=== PATIENT | female | born 1940 | race Caucasian/White ===

== ENCOUNTER → 2017-09-14 | Outpatient (CLI) | payer MEDICARE ==
--- NOTE | 2017-09-16 09:02 | MM ---
Reason for exam: screening (asymptomatic). Last mammogram was performed 1 year and 4 months ago. History: Patient is postmenopausal. Physical Findings: A clinical breast exam by your physician is recommended on an annual basis and results should be correlated with mammographic findings. MG Screening Mammo w CAD Bilateral CC and MLO view(s) were taken. Prior study comparison: May 22, 2016, bilateral MG screening mammo w CAD. November 27, 2015, right breast MG diagnostic mammo RT w CAD. The breast tissue is almost entirely fat. No significant changes when compared with prior studies. ASSESSMENT: Benign, BI-RAD 2 RECOMMENDATION: Routine screening mammogram of both breasts in 1 year.
== END | disposition home or self-care (01) ==
LOC: RADMAMWWP 11:11
PROVIDERS: ATTEND Internal Medicine
DX: Z12.31 Encounter for screening mammogram for malignant neoplasm of breast (principal)
CPT/HCPCS: 77067

== ENCOUNTER → 2018-05-05 | Outpatient (CLI) | payer MEDICARE ==
--- NOTE | 2018-05-05 16:40 | XR ---
EXAMINATION TYPE: XR Hip Complete LT DATE OF EXAM: 05/05/2018 COMPARISON: NONE HISTORY: 78-year-old female with left hip pain TECHNIQUE: 2 views FINDINGS: [id number] degenerative spurring at the left hip with overall preserved joint space. Osteopenia and further limitation due to overlying soft tissue. No acute fracture, subluxation, or dislocation seen. IMPRESSION: Mild left hip osteoarthrosis.
== END | disposition home or self-care (01) ==
LOC: RADXRMAIN 10:40
PROVIDERS: ATTEND Internal Medicine
DX: M16.12 Unilateral primary osteoarthritis, left hip (principal)
CPT/HCPCS: 73502

== ENCOUNTER → 2018-12-29 | Outpatient (CLI) | payer MEDICARE ==
--- NOTE | 2018-12-30 11:30 | MM ---
Reason for exam: screening (asymptomatic). Last mammogram was performed 1 year and 3 months ago. History: Patient is postmenopausal. Physical Findings: A clinical breast exam by your physician is recommended on an annual basis and results should be correlated with mammographic findings. MG 3D Screening Mammo W/Cad Bilateral CC and MLO view(s) were taken. Prior study comparison: September 14, 2017, bilateral MG screening mammo w CAD. May 22, 2016, bilateral MG screening mammo w CAD. There are scattered fibroglandular densities. There is no discrete abnormality. ASSESSMENT: Negative, BI-RAD 1 RECOMMENDATION: Routine screening mammogram of both breasts in 1 year.
== END | disposition home or self-care (01) ==
LOC: RADMAMWWP 09:54
PROVIDERS: ATTEND Internal Medicine
DX: Z12.31 Encounter for screening mammogram for malignant neoplasm of breast (principal)
CPT/HCPCS: 77063; 77067

== ENCOUNTER → 2018-12-29 | Outpatient (CLI) | payer MEDICARE ==
[2018-12-29 16:34] LABS: Albumin 4.5 g/dL (3.80-4.90); Albumin/Globulin Ratio 2.65 (1.60-3.17); Bilirubin, Conjugated 0.3 mg/dL (0.20-0.40); Bilirubin,Unconjugated 0.5 mg/dL; Globulin 1.7 g/dL (1.6-3.3); Total Bilirubin 0.8 mg/dL (0.2-1.2); Total Protein 6.2 g/dL (6.2-8.2)
== END | disposition home or self-care (01) ==
LOC: LABWHC1 10:35
PROVIDERS: ATTEND Physician Assistant
DX: K75.81 Nonalcoholic steatohepatitis (NASH) (principal)
CPT/HCPCS: 36415; 80076

== ENCOUNTER → 2020-11-19 | Outpatient (CLI) | payer MEDICARE ==
[2020-11-19 19:03] LABS: Chol/HDL Ratio 2.85; LDL Cholesterol,Calculated 29.8 mg/dL (0.0-131.0); VLDL Calculation 31.2 mg/dL (5.00-40.00)
== END | disposition home or self-care (01) ==
LOC: LABWHC1 07:31
PROVIDERS: ATTEND Internal Medicine
DX: E78.5 Hyperlipidemia, unspecified (principal)
CPT/HCPCS: 36415; 80061

== ENCOUNTER → 2022-01-29 | Outpatient (CLI) | payer MEDICARE ==
[2022-01-29 14:47] LABS: Basophils # (A) 0.08 X 10*3/uL (0.00-0.10); Basophils % (A) 1.1 %; Eosinophils # (A) 0.09 X 10*3/uL (0.04-0.35); Eosinophils % (A) 1.2 %; HCT 44.1 % (37.2-46.3); HGB 14.1 g/dL (12.0-15.0); Immature Grans, Automated 0.4 %; Lymphocytes # (A) 2.56 X 10*3/uL (0.90-5.00); Lymphocytes % (A) 34.5 %; MCH 28.3 pg (27.0-32.0); MCV 88.6 fL (80.0-97.0); Mean Platelet Volume 9.7 fL (9.5-12.2); Monocytes # (A) 0.71 X 10*3/uL (0.20-1.00); Monocytes % (A) 9.6 %; NRBC Per 100 WBC 0 /100 WBCS (0.0-0.0); Neutrophils # (A) 3.96 X 10*3/uL (1.80-7.70); Neutrophils % (A) 53.2 %; Platelet Count 318 X 10*3/uL (140-440); RBC 4.98 X 10*6/uL (4.10-5.20); RDW 13.8 % (11.5-14.5); WBC 7.43 X 10*3/uL (4.50-10.00)
[2022-01-29 15:04] LABS: African American GFR (CKD) 93.5 (60.0-200.0); Albumin 4.2 g/dL (3.8-4.9); Albumin/Globulin Ratio 1.56 (1.60-3.17); Anion Gap 11.9 mmol/L (10.00-18.00); BUN/Creat Ratio 23.14 Ratio (12.00-20.00); Blood Urea Nitrogen 16.2 mg/dL (9.0-27.0); Calcium 9.6 mg/dL (8.7-10.3); Carbon Dioxide 25.1 mmol/L (20.0-27.5); Globulin 2.7 g/dL (1.6-3.3); Non-African American GFR(CKD) 80.7 (60.0-200.0); Total Bilirubin 0.8 mg/dL (0.30-1.20); Total Protein 6.9 g/dL (6.2-8.2)
== END | disposition home or self-care (01) ==
LOC: LABWHC1 09:34
PROVIDERS: ATTEND Internal Medicine Gastroenterology
DX: K76.0 Fatty (change of) liver, not elsewhere classified (principal)
CPT/HCPCS: 36415; 80053; 85025

== ENCOUNTER 2022-03-22 09:06 | Inpatient (IN) | payer MEDICARE ==
[2022-03-22] MEDS ORDERED: LIDOCAINE 1% INJ 10MG/ML (5 ML VIAL-PF) SQ ONE (09:22)
--- NOTE | 2022-03-22 09:46 | ED ---
Fall HPI - General Chief Complaint: Fall Stated Complaint: Fall Time Seen by Provider: 03/22/22 09:20 Source: EMS Mode of arrival: EMS - History of Present Illness Initial Comments: Patient is a pleasant 82-year-old female presents to the emergency room via EMS after getting out of bed earlier this morning to go to the restroom and tripping and falling. She has a known history of unsteady gait at times. Any loss of consciousness from the fall. She does take a baby aspirin daily. She denies any headache or dizziness, nausea or vomiting at this time. She does complain of neck pain posteriorly. She denies any pain in the extremities or wounds to her extremities. She does have a laceration which is through and through to the left lower lip. She has a bruise and swelling to her right hand with a Band-Aid intact which she reports was present prior to her fall this morning; she states that she applies the Band-Aid to prevent herself from itching the bruised region. She denies any chest pain, shortness of breath, fevers or chills. She has a past medical history significant for hypertension, hyperlipidemia, overactive bladder and GERD. - Related Data Home Medications Medication Instructions Recorded Confirmed Aspirin 81 mg PO QAM 11/15/13 05/17/17 Omeprazole [PriLOSEC] 20 mg PO W/SUPPER 11/15/13 05/17/17 Pravastatin Sodium [Pravachol] 80 mg PO HS 11/15/13 05/17/17 amLODIPine [Norvasc] 10 mg PO QAM 11/15/13 05/17/17 Baclofen 10 mg PO HS 05/17/17 05/17/17 Famotidine 40 mg PO W/SUPPER 05/17/17 05/17/17 Fenofibrate Nanocrystallized 145 mg PO W/SUPPER 05/17/17 05/17/17 [Fenofibrate] Oxybutynin Xl [Ditropan Xl] 5 mg PO QAM 05/17/17 05/17/17 polyethylene glycoL 3350 [Miralax] 17 gm PO QAM 05/17/17 05/17/17 raNITIdine HCL [Zantac] 300 mg PO BID 05/17/17 05/17/17 Previous Rx's Medication Instructions Recorded Triamcinolone 0.1% Cream [Kenalog 1 applicatio TOPICAL BID #1 tube 10/03/17 0.1% Cream] Allergies Allergy/AdvReac Type Severity Reaction Status Date / Time adhesive tape Allergy Unknown Verified 03/22/22 09:18 atorvastatin calcium Allergy Swelling Verified 03/22/22 09:18 [From Lipitor] Review of Systems ROS Statement: Those systems with pertinent positive or pertinent negative responses have been documented in the HPI. ROS Other: All systems not noted in ROS Statement are negative. Past Medical History Past Medical History: GERD/Reflux, Hyperlipidemia, Hypertension History of Any Multi-Drug Resistant Organisms: None Reported Past Surgical History: Section, Orthopedic Surgery Additional Past Surgical History / Comment(s): catarac surgery Past Psychological History: No Psychological Hx Reported Smoking Status: Former smoker Past Alcohol Use History: Rare Past Drug Use History: None Reported General Exam General appearance: alert, in no apparent distress Head exam: Present: normocephalic Expanded Head exam: Absent: hematoma, raccoon eyes, general tenderness Eye exam: Present: normal appearance, PERRL. Absent: scleral icterus, conjunctival injection Expanded Ear exam: Present: normal external inspection Mouth exam: Present: laceration (Left lower lip through and through approximately 1.3 cm) Teeth exam: Present: other (Dentures) Neck exam: Present: other (C-collar intact) Respiratory exam: Present: normal lung sounds bilaterally. Absent: respiratory distress, wheezes, rales, rhonchi, stridor Cardiovascular Exam: Present: regular rate, normal rhythm, normal heart sounds. Absent: systolic murmur, diastolic murmur, rubs, gallop, clicks GI/Abdominal exam: Present: soft, normal bowel sounds. Absent: distended, tenderness, guarding, rebound, rigid Rectal exam: Present: deferred Extremities exam: Present: normal inspection. Absent: tenderness, pedal edema, joint swelling Back exam: Present: normal inspection Neurological exam: Present: alert, oriented X3, CN II-XII intact Psychiatric exam: Present: normal affect, normal mood Skin exam: Present: other (Laceration to lip as above) Course Vital Signs 03/22/22 09:08 Temperature 97.8 F Pulse Rate 107 H Respiratory 18 Rate Blood Pressure 191/100 O2 Sat by Pulse 98 Oximetry Procedures - Laceration Laceration #1 Consent Obtained: verbal consent Indication: laceration Site: lip Description: linear Depth: [id number] Anesthesia Technique: local infiltration Pre-repair: irrigated extensively Type of Sutures: vicryl Size of Sutures: 5-0 (7), 6-0 (3 ) Technique: simple, interrupted Patient Tolerated Procedure: well, no complications Medical Decision Making - Medical Decision Making 82-year-old female presenting to the emergency room via EMS after a trip and fall at home. On aspirin with no loss of consciousness. Complaining of neck pain in c-collar. Will check CT of the brain and cervical spine. No extremity pain or identified injury. Laceration to lip will need suture closure will plan for closure 1 c-collar cleared. EKG obtained after arrival by EMS. No indication for other diagnostic imaging or laboratory studies at this time. Computed tomography scan of the cervical spine reveals an acute pathological fracture at the C4 level. Dr. Chisholm contacted regarding fracture. He evaluated patient at bedside. Patient continues to have no neurological deficits. C-collar has been maintained. Patient is to have surgery with Dr. Chisholm in the morning. Will attempt to arrange MRI of cervical spine without contrast today and transfer into an [facility] cervical collar. Patient to be admitted to Dr. Chisholm service with trauma surgeon and medical management consult. Will place orders. Laceration to left lower lip reapproximated and closed without complications. MRI of cervical spine to be completed at 1:30 today. Cervical spine precautions utilize while transferring patient out of EMS cervical collar to collar. Neurovascularly intact postprocedure. Dr. Wilson with trauma services notified regarding patient's status and was for Dr. Chisholm to be consultation with patient's care. Due to lip laceration and plan for surgery in the morning patient's dentures sent home with patient's daughter at bedside. Will order morphine for pain to utilize as needed for neck pain. Case discussed with Dr. Darby. - EKG Data EKG Comments: Sinus rhythm, left anterior fascicular block, left ventricular hypertrophy ventricular rate 99 bpm, OR interval 176 ms, QRS duration 104 ms, QT/QTC 345/401 ms, PRT axis V, -47, 63. - Radiology Data Radiology results: report reviewed, image reviewed CT brain and cervical spine with out contrast impression: No acute bleed or mass effect intracranially. Acute pathological fracture involving C4 with adjacent soft tissue swelling and disruption of the anterior flowing osteophytes. The findings raise question of metastatic disease or primary tumor of C4. 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 Disposition Clinical Impression: Fall, Closed C4 fracture Disposition: ADMITTED IP TO THIS HOSP Condition: Serious Is patient prescribed a controlled substance at d/c from ED?: No Referrals: Leila Pompa MD [Primary Care Provider] - 1-2 days Time of Disposition: 12:21
[2022-03-22] MEDS ORDERED: LIDOCAINE 1% INJ 10MG/ML (20 ML MDV) SQ ONE (10:00)
--- NOTE | 2022-03-22 10:21 | CT ---
EXAMINATION TYPE: CT brain dirk olguin DATE OF EXAM: 03/22/2022 COMPARISON: None HISTORY: Fall CT DLP: 1431 mGycm Automated exposure control for dose reduction was used. TECHNIQUE: CT scan of the head and cervical spine are performed without contrast. FINDINGS: Head CT: The ventricles, basal cisterns and sulci over the convexities are markedly enlarged consistent with m arked atrophy. There is mild basal ganglial calcification. There is a remote lacunar infarct in the left basal ganglia. There is no acute intra or extra-axial hemorrhage. The posterior fossa is grossly normal. The intraorbital contents appear normal and symmetric. Visualized paranasal sinuses and mastoid air c ells are well aerated. The calvarium is intact. CT cervical spine. The craniovertebral junction relationships are normal. There is a lytic destructive process involving the anterior and inferior aspect of C4. There are diffuse flowing anterior osteophytes of the cervic al and thoracic spine consistent with ankylosing spondylitis and at the C4 level, the flowing osteoph yte is fractured. The findings are consistent with an acute pathologic fracture of C4. There is mild adjacent anterior soft tissue swelling. There is no retropulsion. There is no malalignment in the cer vical spine. IMPRESSION: 1. No acute bleed or mass effect intracranially. 2. Acute pathologic fracture involving C4 with adjacent soft tissue swelling and disruption of the an terior flowing osteophytes. The findings raise the question of metastatic disease or primary tumor of C4 3. Ankylosing spondylitis of the cervical and thoracic spine.
--- NOTE | 2022-03-22 11:03 | P.HPOR ---
History of Present Illness H&P Date: 03/22/22 Chief Complaint: FFS, neck pain, Facial trauma, head injury 82 yo female presented to ED via EMS with family for FFS at home. She c/o neck pain, head pain and facial laceration. She was at home and tripped and hit her face on surrounding object. She denies any pain in her other extremities at this time. Denies any numbness/tingling. Denies any weakness. States pain in neck and mid back. Denies any numbness/tingling in genital region. Family is at bediside. She is fairly independent at home. Will use a walker or cane for stability. She has had recent more frequent falls in the past few months. They state BHT but no LOC with fall. Review of Systems 16 pt ROS as stated in HPI. All others reviewed negative. All systems: negative Constitutional: Reports as per HPI Past Medical History Past Medical History: GERD/Reflux, Hyperlipidemia, Hypertension History of Any Multi-Drug Resistant Organisms: None Reported Past Surgical History: Section, Orthopedic Surgery Additional Past Surgical History / Comment(s): catarac surgery Past Psychological History: No Psychological Hx Reported Smoking Status: Former smoker Past Alcohol Use History: Rare Past Drug Use History: None Reported Medications and Allergies Home Medications Medication Instructions Recorded Confirmed Type Aspirin 81 mg PO QAM 11/15/13 05/17/17 History Omeprazole [PriLOSEC] 20 mg PO W/SUPPER 11/15/13 05/17/17 History Pravastatin Sodium [Pravachol] 80 mg PO HS 11/15/13 05/17/17 History amLODIPine [Norvasc] 10 mg PO QAM 11/15/13 05/17/17 History Baclofen 10 mg PO HS 05/17/17 05/17/17 History Famotidine 40 mg PO W/SUPPER 05/17/17 05/17/17 History Fenofibrate Nanocrystallized 145 mg PO W/SUPPER 05/17/17 05/17/17 History [Fenofibrate] Oxybutynin Xl [Ditropan Xl] 5 mg PO QAM 05/17/17 05/17/17 History polyethylene glycoL 3350 [Miralax] 17 gm PO QAM 05/17/17 05/17/17 History raNITIdine HCL [Zantac] 300 mg PO BID 05/17/17 05/17/17 History Triamcinolone 0.1% Cream [Kenalog 1 applicatio TOPICAL BID #1 tube 10/03/17 Rx 0.1% Cream] Allergies Allergy/AdvReac Type Severity Reaction Status Date / Time adhesive tape Allergy Unknown Verified 03/22/22 09:18 atorvastatin calcium Allergy Swelling Verified 03/22/22 09:18 [From Lipitor] Physical Examination Osteopathic Statement: *. No significant issues noted on an osteopathic structural exam other than those noted in the History and Physical/Consult. AOX3 NAD Facial laceration with left lower lip laceration complete Facial trauma, blunt with contusions No large neck masses TTP about the midline C spine, paraspinal C spine and upper T spine. No TTP of L spine at this time 4+/5 all UE and LE major muscle groups no focal deficits at this time. 2/4 DTR all, Neg hoffmans, no clonus, neg babinski 2/4 distal pulses all 4 EXT Compartments soft compressive Right hand shows contusion about the first MCP joint and Scaphoid region that family states is old with ecchymosis. No pain with log roll b/l hips No pain with PROM knees, hips, ankles, wrists, elbows or shoulders b/l Skin otherwise intact CN II-XII grossly intact Results CT of C spine shows C4 AO type B3 Extension type fracture that translates through C4 vertebral body. This is through an ankylosed spine with OALL and some OPLL noted. NO other fractures at this time noted. C0-1 and C1-2 are stable. Large anterior hematoma noted. No posterior seen. MRI to see neural elements. Assessment and Plan Assessment: 82 yo female C4 AO type B3 extension fracture, NV intact, unstable through ankylosed spine s/p ffs BHT/BFT Complex medical patient Plan: -Stat MRI w/o C spine -C collar, hard with C spine percautions at all times -Bed rest -Trauma, medicine consults for clearance for OR -NO anticoag meds, Mechanical DVT ppx TEDs SCDs -Pain control -Spoke with family about options. Stabilization via posterior cervical decompression and fusion is recommended at this point given the patients status and the impending instability of the fracture. We will plan on OR tomorrow 03/23/22 for posterior C2-T2 stabilization.
[2022-03-22] MEDS ORDERED: NALOXONE 0.4 MG/ML 1 ML VIAL IV PRN (11:42)
[2022-03-22] MEDS: MORPHINE SULFATE 4 MG/ML SYRINGE IV PRN ×3 (12:36→21:05)
--- NOTE | 2022-03-22 14:01 | P.CONS ---
History of Present Illness - Reason for Consult Consult date: 03/22/22 Medical management - Chief Complaint Fall - History of Present Illness 82 years old lady with past medical history of hypertension, hyperlipidemia and GERD she presents to the emergency room via EMS after fall this morning. The patient was admitted to orthopedic surgery and started to have C4 cervical fracture, internal medicine was consulted for medical management. The patient stated that she got out of her bed this morning and she was walking and then tripped and fall on her face she had lacerations on her face and lower lip and some bruising and swelling to her right hand. She denies having any chest pain or difficulty breathing, no fever or sick contacts. No nausea vomiting diarrhea or constipation. Admission her blood pressure was 191/100 trended down to 145/95, she is tachycardic heart rate around 100. Review of Systems A 14 point review systems was assessed patient was only positive for those described in HPI Past Medical History Past Medical History: GERD/Reflux, Hyperlipidemia, Hypertension History of Any Multi-Drug Resistant Organisms: None Reported Past Surgical History: Section, Orthopedic Surgery Additional Past Surgical History / Comment(s): catarac surgery Past Psychological History: No Psychological Hx Reported Smoking Status: Former smoker Past Alcohol Use History: Rare Past Drug Use History: None Reported Medications and Allergies Home Medications Medication Instructions Recorded Confirmed Type Aspirin 81 mg PO DAILY 11/15/13 03/22/22 History Omeprazole [PriLOSEC] 20 mg PO BID 11/15/13 03/22/22 History Pravastatin Sodium [Pravachol] 80 mg PO HS 11/15/13 03/22/22 History amLODIPine [Norvasc] 10 mg PO DAILY 11/15/13 03/22/22 History Famotidine 40 mg PO DAILY 05/17/17 03/22/22 History Latanoprost [Latanoprost 0.005%] 1 drop BOTH EYES HS 03/22/22 03/22/22 History Allergies Allergy/AdvReac Type Severity Reaction Status Date / Time adhesive tape Allergy Unknown Verified 03/22/22 13:01 atorvastatin calcium Allergy Swelling Verified 03/22/22 13:01 [From Lipitor] Physical Exam Vitals: Vital Signs Temp Pulse Resp BP Pulse Ox 03/22/22 12:30 102 H 16 145/95 97 03/22/22 09:08 97.8 F 107 H 18 191/100 98 Intake and Output 03/21/22 03/22/22 03/22/22 22:59 06:59 14:59 Other: Weight 78.471 kg General: [non toxic], [moderate distress], [appears at stated age] Derm: [warm], [dry] Head: [Facial laceration and lower lip laceration], [normocephalic], Eyes: [EOMI], [no lid lag], [anicteric sclera] Mouth: [no lip lesion], [mucus membranes moist] Cardiovascular: [S1S2 reg], [no murmur], [positive posterior tibial pulse bilateral], Lungs: [CTA bilateral], [no rhonchi, no rales] , [no accessory muscle use] Abdominal: [soft], [ nontender to palpation], [no guarding], [no appreciable organomegaly] Ext: [no gross muscle atrophy], [no edema], [no contractures] right hand contusion Neuro: [ CN II-XI grossly intact], [no focal neuro deficits] Psych: [Alert], [drowsy], [appropriate affect] Assessment and Plan Assessment: Hypertension Resume home medications amlodipine 10 mg Hyperlipidemia Resume pravastatin 20 and fenofibrate 145 mg daily GERD Resume famotidine 40 mg by mouth daily Tachycardia Likely secondary to the pain Continue pain medication C4 cervical fracture Management per orthopedic surgery team Thanks for consulting him to medicine, feel free to reach sound physician for any questions. We will follow the patient peripherally
[2022-03-22] MEDS: FAMOTIDINE 20 MG TAB PO SCH (14:15)
[2022-03-22] MEDS: amLODIPine 10 MG TAB PO SCH (14:16)
--- NOTE | 2022-03-22 14:16 | MR ---
EXAMINATION TYPE: MR cervical spine wo con DATE OF EXAM: 03/22/2022 COMPARISON: None HISTORY: Neck pain and trauma TECHNIQUE: Multiplanar, multisequence images of the cervical spine were acquired without contrast. FINDINGS: The craniovertebral junction relationships are normal. The STIR sagittal images reveal marked abnormal signal intensity in the anterior inferior aspect of t he C4 vertebral segment with significant fluid in the prevertebral soft tissues. The findings are con sistent with an acute C4 fracture and prevertebral soft tissue swelling/edema. There is no retropulsi on and the cervical cord is normal in size and signal intensity. The remaining vertebral segments are normal in height and alignment. There are diffuse flowing osteop hytes along the anterior aspect of the cervical and thoracic spine consistent with ankylosing spondyl itis. Fracture at C4 also involves the anterior bridging osteophyte. There is marked cervical lordoti c curvature. IMPRESSION: 1. Acute C4 fracture and prevertebral soft tissue edema without retropulsion or abnormality of the ce rvical cord. 2. Ankylosing spondylitis.
--- NOTE | 2022-03-22 14:24 | P.GSCN ---
History of Present Illness Consult date: 03/22/22 Reason for Consult: Fall, C4 fracture History of present illness: Patient is an 82-year-old lady brought to [facility] emergency department 03/22/2022 after suffering a fall at home overnight. She tells me she's been having issues with urinary frequency and incontinence. She got out of bed in the middle the night to go the restroom and fell. She can't really tell me exactly how this happened. She denies antecedent dizziness or l ightheadedness, no reported chest pain or shortness of breath, no reported head trauma. She's not maintained on any manner of oral anticoagulants of significance aside from a daily low-dose aspirin. She suffered an upper fall a few weeks ago without significant injuries under similar circumstances. She tells me that she got up to maneuver some questions on the couch and ended up falling again without reports of dizziness or lightheadedness. She complains only of pain at the neck. No known personal history of heart attack, stroke, DVT or pulmonary embolus. A computed tomography scan of the head was obtained showing evidence of cerebral atrophy, suggestion of remote left basal ganglion lacunar infarct, no evidence of intracranial bleed or skull fracture. Computed tomography scan of the neck shows an unstable appearing fracture through the body of C4 with associated all lytic bone destruction and question of either metastatic or primary malignancy. No evidence of pneumothorax at the lung apices as visualized. She is been admitted to the neurosurgical service with request for medical and trauma surgery consultation. She's been afebrile since admission, has a low-grade tachycardia at 102. Normotensive, saturating well on room air. As aspirin collar in place. EKG on presentation showed sinus rhythm with a rate of 99, left anterior fascicular block, left ventricular hypertrophy. Laboratory studies not yet available. Review of Systems All systems: negative - Constitutional Reports as per HPI Past Medical History Past Medical History: GERD/Reflux, Hyperlipidemia, Hypertension History of Any Multi-Drug Resistant Organisms: None Reported Past Surgical History: Section, Cholecystectomy, Orthopedic Surgery Additional Past Surgical History / Comment(s): catarac surgery Past Psychological History: No Psychological Hx Reported Smoking Status: Former smoker Past Alcohol Use History: Rare Past Drug Use History: None Reported Medications and Allergies Home Medications Medication Instructions Recorded Confirmed Type Aspirin 81 mg PO DAILY 11/15/13 03/22/22 History Omeprazole [PriLOSEC] 20 mg PO BID 11/15/13 03/22/22 History Pravastatin Sodium [Pravachol] 80 mg PO HS 11/15/13 03/22/22 History amLODIPine [Norvasc] 10 mg PO DAILY 11/15/13 03/22/22 History Famotidine 40 mg PO DAILY 05/17/17 03/22/22 History Latanoprost [Latanoprost 0.005%] 1 drop BOTH EYES HS 03/22/22 03/22/22 History Allergies Allergy/AdvReac Type Severity Reaction Status Date / Time adhesive tape Allergy Unknown Verified 03/22/22 13:01 atorvastatin calcium Allergy Swelling Verified 03/22/22 13:01 [From Lipitor] Surgical - Exam Osteopathic Statement: *. No significant issues noted on an osteopathic structural exam other than those noted in the History and Physical/Consult. Vital Signs Temp Pulse Resp BP Pulse Ox 97.8 F 107 H 18 191/100 98 03/22/22 09:08 03/22/22 09:08 03/22/22 09:08 03/22/22 09:08 03/22/22 09:08 - General well developed, well nourished, no distress - Eyes PERRL, normal ocular movement - ENT No scalp lacerations or contusions appreciated. No oral or dental trauma. A small 1 cm so upper lip laceration is been repaired by the emergency department physician. Cervical collar is in place. normal pinna, normal nares, normal mucosa - Neck trachea midline - Respiratory normal expansion, normal respiratory effort, clear to auscultation - Cardiovascular Heart sounds distant without appreciable murmur Rhythm: regular - Abdomen Abdomen soft, nontender to palpation, no guarding rebound or distention. Pelvis is stable. No abdominal ecchymoses or contusions. Abdomen: soft, non tender - Neurologic GCS 15, moves all extremities, no focal motor or sensory deficits appreciated. normal coordination, normal sensation - Musculoskeletal Pelvis is stable, no limb length discrepancy. There is asymmetry with respect to the right knee compared to the left and a restriction and slightly painful range of passive motion at the right knee. - Psychiatric oriented to time, oriented to person, oriented to place, speech is normal Results - Imaging EKG: report reviewed Assessment and Plan Assessment: 82-year-old lady with recurrent falls, described as mechanical. No reported antecedent dizziness or lightheadedness. Issues with urinary frequency and incontinence, question of underlying UTI. Mild sinus tachycardia, may relate to pain. EKG suggests a degree of ventricular hypertrophy and left anterior fascicular block. No previously demonstrated history of heart attack, stroke, DVT or pulmonary embolus. Has a hemodynamically stable appearance. Computed tomography scan of the head shows no evidence of fracture or intracranial bleed. Computed tomography scan of the neck shows a lytic process and associated unstable fracture at C4 through the body. Question of underlying metastatic or primary malignancy. No evidence of pneumothorax on the apices of the lungs as visualized on CT neck. Some tenderness and restriction of range of motion of the right knee without overlying ecchymoses abrasions or laceration, likely a chronic finding, may relate to dramatic knee effusion. Rule out underlying fracture. Plan: Arrangements have been made for stabilization of his C4 fracture tomorrow morning. In the meantime will order a complete set of labs to look for metabolic issues that could've contributed to her falling to get a good preoperative baseline hemoglobin. Will order a urinalysis to investigate for underlying UTI. Will order right knee x-rays to investigate for fusion versus fracture. Will order computed tomography scan of chest, abdomen and pelvis with oral and IV contrast to screen for potential rib fracture but more importantly investigate for underlying malignancy that could be contributing to a metastatic pathologic cervical spine fracture. She's been having recurrent issues with falls, can really provide a complete story of with regard to the circumstances. Telemetry for now with echocardiogram and carotid duplex pending to look for potential cardiogenic or neurovascular etiology for recurrent falls. Will follow. Time with Patient: Greater than 30
--- NOTE | 2022-03-22 15:05 | XR ---
EXAMINATION TYPE: XR knee complete RT DATE OF EXAM: 03/22/2022 COMPARISON: NONE HISTORY: Knee pain TECHNIQUE: 3 views FINDINGS: There is severe narrowing of the knee joint spaces. There is spurring of the femoral and ti bial condyles. There is genu valgus deformity. No acute fractures seen. There is some mild depression of the lateral tibial plateau that appears chronic. IMPRESSION: Advanced osteoarthritis. No acute fractures seen.
[2022-03-22 15:19] LABS: Basophils % (A) 0 %; Eosinophils % (A) 0 %; HCT 47.6 % (34.0-46.0); HGB 15.6 gm/dL (11.4-16.0); Lymphocytes # (A) 1.6 k/uL (1.0-4.8); Lymphocytes % (A) 11 %; MCH 28.6 pg (25.0-35.0); MCHC 32.8 g/dL (31.0-37.0); MCV 87.4 fL (80.0-100.0); Mean Platelet Volume 7.4; Monocytes # (A) 0.6 k/uL (0-1.0); Monocytes % (A) 4 %; Neutrophils # (A) 13.2 k/uL (1.3-7.7); Neutrophils % (A) 84 %; Platelet Count 297 k/uL (150-450); RBC 5.44 m/uL (3.80-5.40); RDW 12.8 % (11.5-15.5); WBC 15.7 k/uL (3.8-10.6)
[2022-03-22 15:31] LABS: Prothrombin Time 11.1 sec (9.0-12.0)
[2022-03-22 15:38] LABS: ALT 21 U/L (4-34); AST 38 U/L (14-36); African American GFR (CKD) >90 (>60 ml/min/1.73 sqM); Albumin 4.6 g/dL (3.5-5.0); Albumin/Globulin Ratio 1.7; Alkaline Phosphatase 116 U/L (38-126); Anion Gap 13 mmol/L; Blood Urea Nitrogen 14 mg/dL (7-17); Calcium 9.7 mg/dL (8.4-10.2); Carbon Dioxide 25 mmol/L (22-30); Chloride 101 mmol/L (98-107); Globulin 2.7 g/dL; Glucose 155 mg/dL (74-99); Non-African American GFR(CKD) >90 (>60 ml/min/1.73 sqM); Sodium 139 mmol/L (137-145); Total Protein 7.3 g/dL (6.3-8.2)
[2022-03-22] MEDS: IOPAMIDOL CONTRAST (ORAL USE) VIAL PO PRN ×2 (16:55→18:00)
--- NOTE | 2022-03-22 18:13 | US ---
EXAMINATION TYPE: US carotid duplex BILAT DATE OF EXAM: 03/22/2022 COMPARISON: NONE CLINICAL HISTORY: recurrent falls, abnormal EKG. fall, no h/o stroke, patient has C4 fratcure TECHNIQUE: Carotid duplex ultrasound examination. Indirect Doppler criteria was utilized. FINDINGS: EXAM MEASUREMENTS: RIGHT: Peak Systolic Velocity (PSV) cm/sec ----- Right CCA: 43.2 ----- Right ICA: 63.2 ----- Right ECA: 64.8 ICA/CCA ratio: 1.4 RIGHT: End Diastole cm/sec ----- Right CCA: 6.4 ----- Right ICA: 10.4 ----- Right ECA: 0.0 LEFT: Peak Systolic Velocity (PSV) cm/sec ----- Left CCA: 66.5 ----- Left ICA: 68.4 ----- Left ECA: 69.6 ICA/CCA ratio: 1.0 LEFT: End Diastole cm/sec ----- Left CCA: 10.3 ----- Left ICA: 12.4 ----- Left ECA: 0.0 VERTEBRALS (direction of flow): Right Vertebral: Antegrade Left Vertebral: Antegrade Rhythm: Normal [employer] NOTES: Mild heterogeneous plaque bilateral bulbs with no significant stenosis seen IMPRESSION: There is bilateral plaque formation. Images of measurements suggest 25% stenosis in both internal car otid arteries. There is antegrade flow in the vertebral arteries. Criteria for Assigning % of Stenosis / Diameter reduction (Estimation based on the indirect measurements of the internal carotid artery velocities (ICA PSV). 1. Normal (no stenosis)=ICA PSV < 125 cm/s: ratio < 2.0: ICA EDV<40 cm/s. 2. Less than 50% stenosis=ICA PSV < 125 cm/s: ratio < 2.0: ICA EDV<40 cm/s. 3. 50 to 69% stenosis=ICA PSV of 125 to 230 cm/s: ration 2.0 ? 4.0: ICA EDV 40-100 cm/s. 4. Greater than 70% stenosis to near occlusion= ICA PSV > 230 cm/s: ratio > 4.0: ICA EDV > 100 cm/s. 5. Near occlusion= ICA PSV velocities may be low or undetectable: variable ratio and ICA EDV. 6. Total occlusion=unable to detect flow.
[2022-03-22] MEDS: SODIUM CHLORIDE 0.9% 1,000 ML IV SCH ×2 (18:18→20:00)
--- NOTE | 2022-03-22 18:56 | CT ---
EXAMINATION TYPE: CT ChestAbdPelvis w con DATE OF EXAM: 03/22/2022 COMPARISON: 06/19/2014 HISTORY: possible mets CT DLP: 1838 mGycm Automated exposure control for dose reduction was used. CONTRAST: Performed with IV Contrast, patient injected with 100 mL of Isovue 300. Images obtained from the thoracic inlet to the floor the pelvis with the IV contrast. There is oral c ontrast. There is some mild subsegmental atelectasis at the lung bases. Heart is enlarged. No pericardial effu lincoln. No mediastinal adenopathy. There are no hilar masses. Liver spleen and stomach pancreas appear intact. The bowel is nondilated. Gallbladder appears absent. There is no adrenal mass. Kidneys have normal size. There is 2 cm cortical cyst lateral right kidney. There is no hydronephrosis. Delayed images show normal renal excretion. No retroperitoneal adenopath y. Bladder distends smoothly. No inguinal hernia. No free fluid in the pelvis. No pelvic mass. No evidence of a bowel obstruction. Intestinal pattern is normal. No ascites or free air. No mesenter ic edema. Uterus is anteverted. There is multilevel spondylotic changes in the thoracic and lumbar spine. There is bridging osteophyt e formation that could be ankylosing spondylitis. Sternum appears intact. The bony pelvis is intact. The hip joints are intact. No hip fracture. There is arthritic change in the right shoulder joint. No rib fracture seen. IMPRESSION: Bony changes of ankylosing spondylitis in the thoracic and lumbar spine. There is some atelectasis at the lung bases. No evidence of metastatic disease. Cardiomegaly.
[2022-03-23] MEDS: MORPHINE SULFATE 4 MG/ML SYRINGE IV PRN (06:29)
[2022-03-23 06:50] LABS: Amorphous Sediment,Urine Rare /hpf; Appearance,Urine Cloudy (Clear); Bacteria,Urine Rare /hpf; Bilirubin,Urine Negative (Negative); Blood,Urine Negative (Negative); Color,Urine Yellow; Glucose,Urine (UA) Negative (Negative); Ketones,Urine Negative (Negative); Leukocyte Esterase,Urine Negative (Negative); Mucus,Urine Rare /hpf; Nitrite,Urine Negative (Negative); PH, Urine 7.5 (5.0-8.0); Protein,Urine Negative (Negative); RBC,Urine <1 /hpf (0-5); Specific Gravity,Urine 1.017 (1.001-1.035); WBC,Urine 1 /hpf (0-5)
[2022-03-23] MEDS: FENOFIBRATE 160 MG TAB PO SCH (07:26)
[2022-03-23] MEDS: amLODIPine 10 MG TAB PO SCH (07:26)
[2022-03-23] MEDS: FAMOTIDINE 20 MG TAB PO SCH (07:26)
--- NOTE | 2022-03-23 07:29 | P.PN ---
Progress Note - Text Progress Note Date: 03/23/22 Spine Surgery Clinical and Risk Review Ninoska Corona is a 82 yo female presenting for evaluation of Neck pain, BHT, fall from standing. It was my pleasure to have seen and examined Ninoska Corona In our visit today we have had a chance to go over subjective complaints, physical examination findings and treatments including the natural course history without intervention and various interventional options. 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 On physical exam, Ninoska Corona demonstrates Neurovascualryly intact with some weakness globally in UE and LE 4- 4+/5 without focal deficit. She has lacerations to her face and lip as well as contusions to her right hand, head, and facial area. She has TTP about the Cervical and Thoracic spine midline as well as paraspinal w/o TTP of the lumbar spine at this time. Neg log roll b/l LE and Neg pain in any other major joints at this time. I have explained to the patient that as their condition progresses it will cause further neurological deficits and eventual paralysis. Based on the patients imaging, physical exam, and the rapid progression and disabling nature of their symptoms, at this time I recommend surgery in the form or a: C2-T2 posterior open stabilization, decompression and treatment of C4 fracture. I discussed the risk and benefits of this procedure at length with Ninoska Corona . The patient and her family who was at bedside agreed to considered pursuing the procedure abovementioned. Prior to surgery, she should follow up with her PCP (Cardio, ID, IM etc) for clearance. Questions were invited and answered, and the patient wishes to proceed as outlined below. Currently, I am recommendin. Open treatment C4 fracture with C2-T2 decompression and fusion 2. Follow up with PCP for surgical clearance 3. Review of surgical risks and benefits as well as an educational packet on the proposed surgical procedure. Risks: All surgical procedures come with inherent risks, including those related to positioning, anesthesia, intraoperative findings, and postoperative complications. It is important to understand that surgery does not come with any guarantee of a successful outcome as complications and adverse events are always possible. The patient was given a handout in office today discussing the surgical procedure and risks associated with the intervention, both of which were discussed with the patient. These risks include but are not limited to the following: * Experiencing same, different or even worse symptoms in back, neck, arms, or legs compared to before surgery. * Requiring further surgery or other forms of treatment presently or at some time in the future at same or other levels of the intended spine surgery. * On an extreme but fortunately relatively rare basis severe complication such as blindness, stroke, heart attack, temporary and/or permanent nerve injury, paralysis, coma, or may occur, sometimes without known explanation. * Surgical complications may include but are not limited to risk of infection, fluid accumulation in the surgical dissection site, including a seroma or hematoma, that requires additional surgery, wound drainage, bleeding, new numbness or weakness, vision changes/loss, spinal fluid leakage, non-healing and/or infected incision, headaches, difficulty or inability to swallow, hoarseness, hemopneumothorax, pneumothorax, impotence, retrograde ejaculation, vaginal dryness; injury to nerves, spinal cord, blood vessels, lymphatics or other vital organs (i.e., bowel injury, injury to the great vessels); heterotopic bone formation; complications related to the hardware such as screws, rods, cages including misplaced hardware, device failure, instrumentation at the wrong spine level, hardware fracture/breakage, or hardware loosening; vertebral failure of the spinal column above or below the newly placed hardware; retained surgical instrumentations or devices and the need for further surgery. * Medical risks of the planned spine surgery include but are not limited to generalized Infections to the whole body or local areas outside of the surgical site (sepsis), heart attack, bleeding, anaphylaxis, meningitis, seizure, epilepsy, hearing loss, burn alford, laceration of the head or other areas of the body, bruising, hypersensitivity of the skin, bladder over distension; allergic reaction; shoulder injury related to positioning; fat, blood and air clots to other areas of the body like heart, lungs, brain; failure of internal organs such as lungs, kidneys, liver and excessive bleeding. If blood transfusions are necessary, note that transfusions may cause intolerance reactions such as anaphylaxis or other complex reactions. * Despite best efforts, the results of spine surgery might not heal in terms of bone, soft tissues such as skin, fascia, ligaments, and joints. Additionally, in order to achieve best possible results, spine surgery may be carried out beyond the initially planned levels and involve decompression, fusion including insertion of hardware at levels other than the original intended area of surgical interest change some portions of the procedure in order to ensure the best possible outcomes. * With spine surgery and spinal fusion, there are different off label uses of instrumentation (devices, implants and hardware) as well as biological substances (bone morphogenic proteins, demineralized bone matrix) as well as using extra bone from allograft sources (i.e. cadaver bone) or autograft (iliac crest bone, ribs, or the spine itself). The patient has been given information about these practices and their inherent risks and benefits. The patient has had a chance to review all the listed information, has been given print outs detailing this information, and has had all his/her questions answered to their satisfaction. It was my pleasure to have seen and examined Ninoska Corona . In our visit today we have had a chance to go over my understanding of our patient's current condition, the natural course history without intervention and various interventional options. Questions were invited and answered, and the patient wishes to proceed as outlined above. I have seen and examined the patient for 25 minutes and we have spent more than 50% of the time in repeat and detailed counseling about the patient's condition, its natural course history with out and as much as can be predicted with surgery and re-review of various surgical treatment options. In conclusion, Ninoska Corona and her family at bedside requested we proceed with the above suggested surgery and are willing to accept risks and limitations of the suggested surgery as nature of the disease process and our best attempts at treatment for the condition. Thank you again for allowing us to be part of your patient's care. Please don't hesitate to contact me if you have any further questions. Signed and authenticated by: Amos Dunlap [facility] [id number] [address]
[2022-03-23] MEDS ORDERED: TRANEXAMIC ACID IN NACL,ISO-OS 1,000 MG in SALINE 1 100ML.BAG IVPB PRN (08:45)
--- NOTE | 2022-03-23 08:49 | P.ANPRN ---
Procedure Note - Anesthesia - Invasive Line Left Arterial Line Time Out Performed: Yes Date of Procedure: 03/23/22 Time of Procedure: 07:45 Location of Patient: PreOp Preparation: Sterile Prep, Sterile Dressing Arterial Line Location: Radial Ultrasound Used: Yes Purpose - Visualization and Identification of Vasculature: Yes Needle Guage: 20 Image Stored and Saved: Yes Narrative: Left radial arterial line placed using Seldinger technique.
[2022-03-23] MEDS ORDERED: ONDANSETRON 4 MG/2 ML VIAL ONE (08:55)
[2022-03-23] MEDS ORDERED: ceFAZolin 1,000 MG VIAL ONE (08:55)
[2022-03-23] MEDS ORDERED: PHENYLEPHRINE-0.9% NACL SYG 1,000 MCG/10 ML SYRINGE ONE (08:55)
[2022-03-23] MEDS ORDERED: SODIUM CHLORIDE 0.9% 100 ML BAG ONE (08:55)
[2022-03-23] MEDS ORDERED: ROCURONIUM 10 MG/ML (5 ML VIAL) IV ONE (08:55)
[2022-03-23] MEDS ORDERED: LIDOCAINE 2% INJ 20 MG/ML (2 ML VIAL) ONE (08:55)
[2022-03-23] MEDS ORDERED: TRANEXAMIC ACID IN NACL,ISO-OS 1,000 MG/100 ML BAG ONE (08:55)
[2022-03-23] MEDS ORDERED: fentaNYL (PF) 50 MCG/ML 2 ML AMP ONE (08:55)
[2022-03-23] MEDS ORDERED: PROPOFOL 10 MG/ML 20 ML VIAL IV ONE (08:55)
[2022-03-23] MEDS ORDERED: LACTATED RINGERS 1,000 ML IV ONE ×2 (08:57)
[2022-03-23] MEDS ORDERED: THROMBIN (BOVINE) 5,000 UNIT VIAL MISCELLANE ONE (10:16)
[2022-03-23] MEDS ORDERED: GELATIN SPONGE,ABSORB (LARGE) 1 EACH SPONGE MISCELLANE ONE (10:16)
[2022-03-23 10:35] LABS: Basophils # (A) 0.05 X 10*3/uL (0.00-0.10); Basophils % (A) 0.3 %; Eosinophils # (A) 0.02 X 10*3/uL (0.04-0.35); Eosinophils % (A) 0.1 %; HCT 44.9 % (37.2-46.3); Immature Grans, Automated 0.5 %; Lymphocytes # (A) 2.81 X 10*3/uL (0.90-5.00); Lymphocytes % (A) 18.9 %; MCH 28.9 pg (27.0-32.0); MCHC 33.4 g/dL (32.0-37.0); MCV 86.5 fL (80.0-97.0); Mean Platelet Volume 9.8 fL (9.5-12.2); Monocytes # (A) 1.26 X 10*3/uL (0.20-1.00); Monocytes % (A) 8.5 %; NRBC Per 100 WBC 0 /100 WBCS (0.0-0.0); Neutrophils # (A) 10.65 X 10*3/uL (1.80-7.70); Neutrophils % (A) 71.7 %; Platelet Count 311 X 10*3/uL (140-440); RBC 5.19 X 10*6/uL (4.10-5.20); RDW 13.3 % (11.5-14.5); WBC 14.86 X 10*3/uL (4.50-10.00)
[2022-03-23 10:38] LABS: INR 1.04 (0.90-1.11); Prothrombin Time 11.4 sec (9.9-11.9)
[2022-03-23 10:43] LABS: African American GFR (CKD) 105.4 (60.0-200.0); Anion Gap 11.8 mmol/L (10.00-18.00); BUN/Creat Ratio 26.08 Ratio (12.00-20.00); Blood Urea Nitrogen 12.7 mg/dL (9.0-27.0); Calcium 9.3 mg/dL (8.7-10.3); Carbon Dioxide 23.2 mmol/L (20.0-27.5); Non-African American GFR(CKD) 90.9 (60.0-200.0); Potassium 4.1 mmol/L (3.5-5.5)
[2022-03-23] MEDS ORDERED: HYDROmorphone 1 MG/ML 1 ML SYRINGE IVP PRN (12:07)
[2022-03-23] MEDS ORDERED: SENNOSIDES-DOCUSATE SODIUM 1 EACH TAB PO PRN (12:07)
[2022-03-23] MEDS ORDERED: CYCLOBENZAPRINE 5 MG TAB PO PRN (12:07)
[2022-03-23] MEDS ORDERED: LIDOCAINE 1% (10MG/ML) FOR IV START INTRADERMA PRN (12:29)
[2022-03-23] MEDS ORDERED: DEXAMETHASONE SOD PHOSPHATE 4 MG/ML 1 ML VIAL IV ONE (12:29)
[2022-03-23] MEDS ORDERED: ONDANSETRON 4 MG/2 ML VIAL IVP ONE (12:29)
[2022-03-23] MEDS ORDERED: ACETAMINOPHEN IV (For NPO) 1,000 MG/100 ML VIAL IVPB ONE (12:50)
--- NOTE | 2022-03-23 12:54 | XR ---
Cervical spine. 8 intraoperative fluoroscopic spot films of the cervical spine were obtained demonstrating posterior cervical fusion in process. 50 seconds of fluoroscopy was utilized. IMPRESSION: Intraoperative fluoroscopic spot films and fluoroscopy for the purpose of cervical fusion.
[2022-03-23] MEDS: HYDROmorphone 0.5 MG/0.5 ML SYRINGE IVP PRN ×3 (13:05→20:56)
--- NOTE | 2022-03-23 13:30 | P.PN ---
Subjective Progress Note Date: 03/23/22 The patient was seen at bedside, no acute events overnight. Objective - Vital Signs Vital signs: Vital Signs Temp 98.7 F 03/23/22 04:25 Pulse 86 03/23/22 13:14 Resp 16 03/23/22 13:14 BP 155/78 03/23/22 13:14 Pulse Ox 94 L 03/23/22 13:14 FiO2 Intake & Output 03/22/22 03/23/22 03/23/22 18:59 06:59 18:59 Intake Total 6837 450 2855 Output Total 250 Balance 9090 386 3252 Weight 78.471 kg Intake: IV 2100 Intake, IV Titration 900 Amount Sodium Chloride 0.9% 1, 900 000 ml @ 75 mls/hr IV . [id number] [facility] Rx#:[id number] Oral 1080 0 Output: Urine 100 Estimated Blood Loss 150 Other: Voiding Method External Catheter Indwelling Catheter - Exam General: [non toxic], [moderate distress], [appears at stated age] Derm: [warm], [dry] Head: [Facial laceration and lower lip laceration], [normocephalic], Eyes: [EOMI], [no lid lag], [anicteric sclera] Mouth: [no lip lesion], [mucus membranes moist] Cardiovascular: [S1S2 reg], [no murmur], [positive posterior tibial pulse bilateral], Lungs: [CTA bilateral], [no rhonchi, no rales] , [no accessory muscle use] Abdominal: [soft], [ nontender to palpation], [no guarding], [no appreciable organomegaly] Ext: [no gross muscle atrophy], [no edema], [no contractures] right hand contusion Neuro: [ CN II-XI grossly intact], [no focal neuro deficits] Psych: [Alert], [drowsy], [appropriate affect] - Labs CBC & Chem 7: 03/23/22 06:29 03/23/22 06:29 Labs: Abnormal Lab Results - Last 24 Hours (Table) 03/22/22 03/22/22 03/23/22 Range/Units 14:36 14:36 06:29 WBC 15.7 H 14.86 H (3.8-10.6) k/uL RBC 5.44 H (3.80-5.40) m/uL Hct 47.6 H (34.0-46.0) % Immature Gran # 0.07 H (0.00-0.04) X 10*3/uL Neutrophils # 13.2 H 10.65 H (1.3-7.7) k/uL Monocytes # 1.26 H (0.20-1.00) X 10*3/uL Eosinophils # 0.02 L (0.04-0.35) X 10*3/uL Sodium (135-145) mmol/L Creatinine 0.46 L (0.52-1.04) mg/dL BUN/Creatinine Ratio (12.00-20.00) Ratio Glucose 155 H (74-99) mg/dL AST 38 H (14-36) U/L Urine Appearance (Clear) Amorphous Sediment (None) /hpf Urine Bacteria (None) /hpf Urine Mucus (None) /hpf 03/23/22 03/23/22 Range/Units 06:29 06:35 WBC (3.8-10.6) k/uL RBC (3.80-5.40) m/uL Hct (34.0-46.0) % Immature Gran # (0.00-0.04) X 10*3/uL Neutrophils # (1.3-7.7) k/uL Monocytes # (0.20-1.00) X 10*3/uL Eosinophils # (0.04-0.35) X 10*3/uL Sodium 134 L (135-145) mmol/L Creatinine 0.5 L (0.52-1.04) mg/dL BUN/Creatinine Ratio 26.08 H (12.00-20.00) Ratio Glucose 153 H (74-99) mg/dL AST (14-36) U/L Urine Appearance Cloudy H (Clear) Amorphous Sediment Rare H (None) /hpf Urine Bacteria Rare H (None) /hpf Urine Mucus Rare H (None) /hpf Assessment and Plan Assessment: Hypertension Resume home medications amlodipine 10 mg Hyperlipidemia Resume pravastatin 20 and fenofibrate 145 mg daily GERD Resume famotidine 40 mg by mouth daily Tachycardia Likely secondary to the pain Continue pain medication C4 cervical fracture Management per orthopedic surgery team Thanks for consulting him to medicine, feel free to reach sound physician for any questions. We will follow the patient peripherally
[2022-03-23] MEDS: LACTATED RINGERS 1,000 ML IV SCH (13:53)
--- NOTE | 2022-03-23 14:48 | P.PN ---
Subjective Progress Note Date: 03/23/22 Principal diagnosis: Fall, unstable C4 fracture Patient seen and examined at bedside. Underwent fusion for C4 fracture earlier today. Appears comfortable, admits to mild pains. The cystic collar is in place. Patient is some alert, conversant and interactive. Appears comfortable at rest. Not requiring pressor support, has a normotensive hemodynamically stable appearance. Hemoglobin is stable at 15.0 compared to preoperative value at 15.6. White blood cell count today is mildly elevated at 14.8, platelet count normal range at 311. INR normal at 1.04. Metabolic panel shows a very mild hyponatremia at 134, otherwise normal. Urinalysis was negative for UTI. Carotid duplex was obtained showing mild bilateral internal carotid plaques with 25% or less stenosis, antegrade vertebral flow bilaterally. Echocardiogram is pending. Images and official report from computed tomography scan chest abdomen and pelvis were reviewed. There are degenerative bony changes throughout but no evidence of rib fracture, hemothorax, pneumothorax, pulmonary contusion, thoracic or lumbar or pelvic injury. No evidence of solid organ or visceral injury. No intra-abdominal free fluid, no retroperitoneal hematoma, no evidence of bowel obstruction. Right knee x-ray shows severe osteoarthritis, no acute pathology. Objective - Vital Signs Vital signs: Vital Signs Temp 98.7 F 03/23/22 04:25 Pulse 86 03/23/22 13:14 Resp 16 03/23/22 13:14 BP 155/78 03/23/22 13:14 Pulse Ox 94 L 03/23/22 13:14 FiO2 Intake & Output 03/22/22 03/23/22 03/23/22 18:59 06:59 18:59 Intake Total 0084 431 9879 Output Total 250 Balance 0852 043 1337 Weight 78.471 kg Intake: IV 2500 Intake, IV Titration 900 Amount Sodium Chloride 0.9% 1, 900 000 ml @ 75 mls/hr IV . [id number] [facility] Rx#:[id number] Oral 1080 0 Output: Urine 100 Estimated Blood Loss 150 Other: Voiding Method External Catheter Indwelling Catheter - Constitutional General appearance: Present: cooperative, no acute distress - EENT Eyes: Present: PERRLA ENT: Present: hearing grossly normal - Respiratory Respiratory: bilateral: CTA - Cardiovascular Rhythm: regular - Gastrointestinal Gastrointestinal Comment(s): Abdomen soft, nontender to palpation, no guarding rebound or distention. Pelvis is stable. - Neurologic Neurologic Comment(s): GCS 15 Neurologic: Present: CNII-XII intact - Musculoskeletal Musculoskeletal Comment(s): Patient is status post cervical fusion with Throckmorton collar in place. MATIAS drain with minimal sanguinous aspirate. - Psychiatric Psychiatric: Present: A&O x's 3, appropriate affect - Labs CBC & Chem 7: 03/23/22 06:29 03/23/22 06:29 Labs: Abnormal Lab Results - Last 24 Hours (Table) 03/22/22 03/22/22 03/23/22 Range/Units 14:36 14:36 06:29 WBC 15.7 H 14.86 H (3.8-10.6) k/uL RBC 5.44 H (3.80-5.40) m/uL Hct 47.6 H (34.0-46.0) % Immature Gran # 0.07 H (0.00-0.04) X 10*3/uL Neutrophils # 13.2 H 10.65 H (1.3-7.7) k/uL Monocytes # 1.26 H (0.20-1.00) X 10*3/uL Eosinophils # 0.02 L (0.04-0.35) X 10*3/uL Sodium (135-145) mmol/L Creatinine 0.46 L (0.52-1.04) mg/dL BUN/Creatinine Ratio (12.00-20.00) Ratio Glucose 155 H (74-99) mg/dL AST 38 H (14-36) U/L Urine Appearance (Clear) Amorphous Sediment (None) /hpf Urine Bacteria (None) /hpf Urine Mucus (None) /hpf 03/23/22 03/23/22 Range/Units 06:29 06:35 WBC (3.8-10.6) k/uL RBC (3.80-5.40) m/uL Hct (34.0-46.0) % Immature Gran # (0.00-0.04) X 10*3/uL Neutrophils # (1.3-7.7) k/uL Monocytes # (0.20-1.00) X 10*3/uL Eosinophils # (0.04-0.35) X 10*3/uL Sodium 134 L (135-145) mmol/L Creatinine 0.5 L (0.52-1.04) mg/dL BUN/Creatinine Ratio 26.08 H (12.00-20.00) Ratio Glucose 153 H (74-99) mg/dL AST (14-36) U/L Urine Appearance Cloudy H (Clear) Amorphous Sediment Rare H (None) /hpf Urine Bacteria Rare H (None) /hpf Urine Mucus Rare H (None) /hpf - Imaging and Cardiology CT scan - abdomen: report reviewed, image reviewed CT scan - chest: report reviewed, image reviewed CT scan - pelvis: report reviewed, image reviewed Assessment and Plan Assessment: 82-year-old lady with recurrent falls, described as mechanical. No reported antecedent dizziness or lightheadedness. Issues with urinary frequency and incontinence, no evidence of UTI on urinalysis today. EKG suggests a degree of ventricular hypertrophy and left anterior fascicular block. No previously demonstrated history of heart attack, stroke, DVT or pulmonary embolus. Carotid duplex shows no evidence of hemodynamically significant stenoses, antegrade vertebral flow bilaterally. Has a hemodynamically stable appearance. Computed tomography scan of the head shows no evidence of fracture or intracranial bleed. Computed tomography scan of the neck shows a lytic process and associated unstable fracture at C4 through the body. Question of underlying metastatic or primary malignancy. Computed tomography scan of chest abdomen and pelvis shows no evidence of visceral malignancy no vonda signs of bony metastases no evidence of solid organ injury, rib fracture, thoracic or lumbar injury. No evidence of retroperitoneal hematoma, no intra-abdominal free fluid. No evidence of pneumothorax on the apices of the lungs as visualized on CT neck. Severe osteoarthritis of the right knee on imaging, no acute pathology. Plan: Previously ordered diagnostics and imaging tests of been reviewed. Would appear the patient has an isolated single system neurosurgical injury with respect to his C4 fracture. We'll reassess at your request. Time with Patient: Greater than 30
--- NOTE | 2022-03-23 14:51 | P.CNPUL ---
History of Present Illness Consult date: 03/23/22 Requesting physician: Amos Chisholm Chief complaint: ICU management. History of present illness: Pulmonary consult dated 03/23/2022. 83-year-old female, who presented to the emergency room on March 22, after getting out of bed earlier, and apparently tripping and falling, while going to the restroom. She apparently complained of neck pain posteriorly. Is not clear whether or not there was loss of consciousness. She apparently did have a laceration to the left lower lip, which occurred during the fall, and a bruise and swelling to the right hand. MRI of the spine, showed an acute C4 fracture, with prevertebral soft tissue edema without retropulsion or abnormality of the cervical cord. The patient underwent a C2 to T2 decompression and fusion today by Dr. Chisholm, and the patient is brought into the intensive care unit for further monitoring and management. Currently, she has a cervical collar in place, is on 4 L of oxygen, and receiving lactated Ringer's at 75 mL an hour. White count 14.9, hemoglobin 15, hematocrit 44.9, and platelet count is 311,000. Coags are normal. Sodium 134, potassium 4.1, chlorides 99, CO2 23, anion gap is 12, BUN is 13, and creatinine 0.5. Glucose 153. Urinalysis is negative. Head CT is negative. Right knee x-ray is negative. CT of the chest abdomen and pelvis shows changes of ankylosing spondylitis in the thoracic and lumbar spine. Review of Systems REVIEW OF SYSTEMS: CONSTITUTIONAL: [Negative.] NEUROLOGIC: Neck pain. HEENT: [ Negative.] CARDIAC: [Negative.] PULMONARY: [Negative.] GI: [Negative.] : [Negative.] RHEUMATOLOGIC: [ Negative.] IMMUNOLOGIC: [ Negative.] ENDOCRINE: [Negative. ] DERMATOLOGIC: [Negative.] Past Medical History Past Medical History: GERD/Reflux, Hyperlipidemia, Hypertension History of Any Multi-Drug Resistant Organisms: None Reported Past Surgical History: Section, Cholecystectomy, Orthopedic Surgery Additional Past Surgical History / Comment(s): catarac surgery Past Psychological History: No Psychological Hx Reported Smoking Status: Former smoker Past Alcohol Use History: Rare Past Drug Use History: None Reported Medications and Allergies Home Medications Medication Instructions Recorded Confirmed Type Aspirin 81 mg PO DAILY 11/15/13 03/22/22 History Omeprazole [PriLOSEC] 20 mg PO BID 11/15/13 03/22/22 History Pravastatin Sodium [Pravachol] 80 mg PO HS 11/15/13 03/22/22 History amLODIPine [Norvasc] 10 mg PO DAILY 11/15/13 03/22/22 History Famotidine 40 mg PO DAILY 05/17/17 03/22/22 History Latanoprost [Latanoprost 0.005%] 1 drop BOTH EYES HS 03/22/22 03/22/22 History Allergies Allergy/AdvReac Type Severity Reaction Status Date / Time adhesive tape Allergy Unknown Verified 03/22/22 13:01 atorvastatin calcium Allergy Swelling Verified 03/22/22 13:01 [From Lipitor] Physical Exam Osteopathic Statement: *. No significant issues noted on an osteopathic structural exam other than those noted in the History and Physical/Consult. Vitals: Vital Signs Temp Pulse Resp BP Pulse Ox 03/23/22 13:14 86 16 155/78 94 L 03/23/22 12:59 89 16 158/79 95 03/23/22 12:44 86 16 157/78 95 03/23/22 12:29 71 16 150/69 96 03/23/22 04:25 98.7 F 85 18 164/84 95 03/22/22 20:00 98.2 F 95 16 154/81 96 Intake and Output 03/22/22 03/23/22 03/23/22 22:59 06:59 14:59 Intake Total 3449 397 2457 Output Total 250 Balance 2379 037 8362 Intake: IV 2500 Intake, IV Titration 900 Amount Sodium Chloride 0.9% 1, 900 000 ml @ 75 mls/hr IV . [id number] [facility] Rx#:[id number] Oral 1080 0 Output: Urine 100 Estimated Blood Loss 150 Other: Voiding Method External Catheter Indwelling Catheter No acute distress, sedated, from the effects of the anesthetic, in no acute distress, no respiratory distress, currently on 4 L. HEENT examination is grossly unremarkable. Neck is in a cervical collar. Cardiovascular examination reveals regular rhythm rate. S1-S2 normal. No S3 or S4. No discernible murmur noted. Heart rate 86 bpm. Lungs reveal clear breath sounds. Breath sounds are equal bilaterally. No adventitious lung sounds including wheezes rhonchi or crackles. Saturations are 96%. Abdomen soft, without bowel sounds. No masses. Extremities are intact. No cyanosis clubbing or edema. Skin is without rash or lesion. Neurologic examination is difficult to evaluate given her level of sedation. Results - Laboratory Findings CBC and BMP: 03/23/22 06:29 03/23/22 06:29 PT/INR, D-dimer PT 11.4 sec (9.9-11.9) 03/23/22 06:29 INR 1.04 (0.90-1.11) 03/23/22 06:29 Abnormal lab findings: Abnormal Labs 03/22/22 03/22/22 03/23/22 14:36 14:36 06:29 WBC 15.7 H 14.86 H RBC 5.44 H Hct 47.6 H Immature Gran # 0.07 H Neutrophils # 13.2 H 10.65 H Monocytes # 1.26 H Eosinophils # 0.02 L Sodium Creatinine 0.46 L BUN/Creatinine Ratio Glucose 155 H AST 38 H Urine Appearance Amorphous Sediment Urine Bacteria Urine Mucus 03/23/22 03/23/22 06:29 06:35 WBC RBC Hct Immature Gran # Neutrophils # Monocytes # Eosinophils # Sodium 134 L Creatinine 0.5 L BUN/Creatinine Ratio 26.08 H Glucose 153 H AST Urine Appearance Cloudy H Amorphous Sediment Rare H Urine Bacteria Rare H Urine Mucus Rare H - Diagnostic Findings Chest x-ray: image reviewed CT scan - chest: image reviewed Assessment and Plan Assessment: Postop day #0, status post C2-T2 decompression and fusion, secondary to an acute C4 fracture, from a fall. History of hyperlipidemia. History of hypertension. History of gastroesophageal reflux disease. History of overactive bladder. Prior history of cataract surgery. Plan: Plan dated 03/23/2022. The patient is transferred to the intensive care unit, where she'll be monitored. Is currently on oxygen at 4 L. She is receiving lactated Ringer's at 75 mL an hour. Respiratory status and hemodynamics are stable. Labs, x- rays, medications are all reviewed. Prognosis is certainly guarded. We'll continue to follow the patient closely along with Dr. Chisholm. Time with Patient: Greater than 30
[2022-03-23] MEDS: ACETAMINOPHEN TAB 325 MG TAB PO SCH (17:06)
--- NOTE | 2022-03-23 17:48 | P.PN ---
Progress Note - Text Progress Note Date: 03/23/22 Postop: . Patient seen and examined they are doing well. Their pain is under control at this time. They are moving all 4 extremities without any issues. Vital signs are stable.. she is currently in the ICU under nursing care and ICU care doing well. No Other issues at this time they deny fever chills shortness of breath or chest pain. Appreciate ICU management [C collar in place, well fitting] [Medical management pending] [Continue with intravenous fluids, pain medication, muscle relaxers, home medication] [Soft diet to start to advance as tolerated] We will evaluate the patient in the morning.
[2022-03-23] MEDS: HYDROcodone/APAP 10-325MG 1 EACH TAB PO PRN (22:12)
[2022-03-23] MEDS: SODIUM CHLORIDE 0.9% 1,000 ML IV SCH (22:13)
[2022-03-24] MEDS: ACETAMINOPHEN TAB 325 MG TAB PO SCH ×4 (00:21→18:15)
[2022-03-24] MEDS: HYDROcodone/APAP 10-325MG 1 EACH TAB PO PRN ×3 (03:22→20:49)
[2022-03-24 05:18] LABS: Basophils % (A) 0 %; Eosinophils % (A) 0 %; HCT 36.3 % (34.0-46.0); Lymphocytes % (A) 14 %; MCH 29.6 pg (25.0-35.0); MCHC 34.3 g/dL (31.0-37.0); MCV 86.3 fL (80.0-100.0); Monocytes # (A) 1.1 k/uL (0-1.0); Monocytes % (A) 7 %; Neutrophils % (A) 77 %; Platelet Count 235 k/uL (150-450); RDW 12.8 % (11.5-15.5); WBC 14.2 k/uL (3.8-10.6)
[2022-03-24 05:24] LABS: HGB 12.5 gm/dL (11.4-16.0)
[2022-03-24 05:27] LABS: African American GFR (CKD) >90 (>60 ml/min/1.73 sqM); Anion Gap 7 mmol/L; Blood Urea Nitrogen 14 mg/dL (7-17); Calcium 8.2 mg/dL (8.4-10.2); Carbon Dioxide 25 mmol/L (22-30); Chloride 100 mmol/L (98-107); Glucose 153 mg/dL (74-99); Non-African American GFR(CKD) >90 (>60 ml/min/1.73 sqM); Sodium 132 mmol/L (137-145)
--- NOTE | 2022-03-24 06:35 | FL ---
Intraoperative/procedural fluoroscopic services were provided. Total fluoroscopy time is 50 seconds w ith a total of 8 submitted images to PACS. Please see the operative note for further details.
[2022-03-24] MEDS ORDERED: HYDROmorphone 0.5 MG/0.5 ML SYRINGE IVP PRN (07:00)
[2022-03-24] MEDS ORDERED: ONDANSETRON 4 MG/2 ML VIAL IVP PRN (07:00)
--- NOTE | 2022-03-24 07:09 | CT ---
EXAMINATION TYPE: CT cervical spine wo con CT DLP: 403.3 mGycm, Automated exposure control for dose reduction was used. DATE OF EXAM: 03/24/2022 5:51 AM COMPARISON: Cervical spine radiograph 03/23/2022, MR cervical spine 03/22/2022, CT brain C-spine 022. CLINICAL INDICATION:Female, 82 years old with history of s/p C2-T1 decompression and fusion; [facility], s/p C2-T1 decompression and fusion TECHNIQUE: Axial CT images from the skull base to the inferior aspect of T2 we obtained without intra venous contrast. Coronal and sagittal reformatted images were also reviewed. FINDINGS: Fracture: Acute/subacute C4 fracture redemonstrated. No new fractures. Osseous structures: Extensive postsurgical changes from posterior disc fusion with bilateral pedicula r screws and rods involving C2-T1 with laminectomy changes. Hardware appears intact. Multilevel degen erative disc disease with disc space narrowing, endplate sclerosis, and anterior flowing osteophytosi s. Marked degenerative changes of the sternoclavicular region. Ankylosing spondylitis. Vertebral alignment: Marked cervical lordotic curvature redemonstrated. Spinal canal/Neural Foramina: No gross evidence of significant central canal stenosis with the limita tions of noncontrast exam and hardware. Neck soft tissues: Prevertebral soft tissue swelling/edema redemonstrated. No definitive fluid collec tions within limitations of a noncontrast exam. Skin francia along the posterior neck soft tissues. S urgical drain terminates in the posterior paravertebral soft tissues at C6-C7. Foci of gas in the pos terior paraspinal soft tissues extending from C1 through C6. Other: The airway is patent. Minimal scattered patchy airspace disease within the right upper lobe. IMPRESSION: 1. Extensive posterior cervical fusion changes from C2-T1 with soft tissue edema and paravertebral ga s likely related to recent surgery. 2. Redemonstration of acute/subacute C4 fracture from CT 03/22/2022. 3. Ankylosing spondylitis.
[2022-03-24] MEDS: PANTOPRAZOLE 40 MG TABLET PO SCH (08:58)
[2022-03-24] MEDS: amLODIPine 10 MG TAB PO SCH (08:58)
[2022-03-24] MEDS: PRAVASTATIN SODIUM 80 MG TAB PO SCH (08:58)
[2022-03-24] MEDS: FAMOTIDINE 20 MG TAB PO SCH (08:58)
[2022-03-24] MEDS: FENOFIBRATE 160 MG TAB PO SCH (08:59)
--- NOTE | 2022-03-24 10:35 | P.PN ---
Subjective Progress Note Date: 03/24/22 83-year-old female, who presented to the emergency room on March 22, after getting out of bed earlier, and apparently tripping and falling, while going to the restroom. She apparently complained of neck pain posteriorly. Is not clear whether or not there was loss of consciousness. She apparently did have a laceration to the left lower lip, which occurred during the fall, and a bruise and swelling to the right hand. MRI of the spine, showed an acute C4 fracture, with prevertebral soft tissue edema without retropulsion or abnormality of the cervical cord. The patient underwent a C2 to T2 decompression and fusion today by Dr. Chisholm, and the patient is brought into the intensive care unit for further monitoring and management. Currently, she has a cervical collar in place, is on 4 L of oxygen, and receiving lactated Ringer's at 75 mL an hour. White count 14.9, hemoglobin 15, hematocrit 44.9, and platelet count is 311,000. Coags are normal. Sodium 134, potassium 4.1, chlorides 99, CO2 23, anion gap is 12, BUN is 13, and creatinine 0.5. Glucose 153. Urinalysis is negative. Head CT is negative. Right knee x-ray is negative. CT of the chest abdomen and pelvis shows changes of ankylosing spondylitis in the thoracic and lumbar spine. On 03/24/2022, the patient is being seen for a follow-up. The patient is post multilevel decompression and fusion involving the cervical spine. The patient was activated successfully. She is doing well. She still wearing a hard neck collar. She is able to move all 4 extremities without any limitation. Her pain is under adequate control pitches and oxygen at 2 L and her current pulse ox 96%. Cardiac rhythm is sinus. No chest pain. Car catheter in place. The patient is producing adequate amount of urine output. [place] is a 40 with a creatinine of 0.4. The white cell causes 14.2 with a hemoglobin 12.5 and a platelet count of 235. UA is negative for now. The patient has been communicating. The patient has no specific complaint otherwise for now. She is on Dilaudid for pain control. Her home medications and resume. In terms of DVT prophylaxis, the patient has compression devices. The patient underwent a follow-up C-spine CAT scan today and the patient was found to have postsurgical changes and cervical fusion involving C2 through T1 along with some soft tissue edema and some gas related to recent surgery. There was redemonstration of the acute/subacute C4 fracture that was also seen on a CAT scan of the day neck from 03/22/2022. 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 IV fluids as in the form of normal saline at rate of 75 mL an hour. Objective - Vital Signs Vital signs: Vital Signs Temp 98.8 F 03/24/22 04:00 Pulse 90 03/24/22 07:00 Resp 21 03/24/22 07:00 BP 150/83 03/24/22 07:00 Pulse Ox 94 L 03/24/22 07:00 FiO2 Intake & Output 03/23/22 03/24/22 03/24/22 18:59 06:59 18:59 Intake Total 3050 975 Output Total 530 635 Balance 2520 340 Weight 82.1 kg Intake: IV 2850 975 Sodium Chloride 0.9% 1, 300 975 000 ml @ 75 mls/hr IV . [id number] [facility] Rx#:[id number] ceFAZolin 2 gm In Sodium 50 Chloride 0.9% 50 ml @ 100 mls/hr IVPB Q8H [facility] Rx#: [id number] Oral 200 Output: Drainage 50 100 Right Neck 50 100 Urine 330 535 Estimated Blood Loss 150 Other: Voiding Method Indwelling Catheter Indwelling Catheter ABP, PAP, CO, CI - Last Documented Arterial Blood Pressure 145/61 - Exam No acute distress, sedated, from the effects of the anesthetic, in no acute distress, no respiratory distress, currently on 2 L. HEENT examination is grossly unremarkable. Neck is in a cervical collar. Cardiovascular examination reveals regular rhythm rate. S1-S2 normal. No S3 or S4. No discernible murmur noted. Lungs reveal clear breath sounds. Breath sounds are equal bilaterally. No adventitious lung sounds including wheezes rhonchi or crackles. Abdomen soft, without bowel sounds. No masses. Extremities are intact. No cyanosis clubbing or edema. Skin is without rash or lesion. Neurologic examination is difficult to evaluate given her level of sedation. - Labs CBC & Chem 7: 03/24/22 05:02 03/24/22 05:02 Labs: Abnormal Lab Results - Last 24 Hours (Table) 10/03/0603/23/22 03/24/22 Range/Units 06:29 06:29 05:02 WBC 14.86 H 14.2 H (4.50-10.00) X 10*3/uL Immature Gran # 0.07 H (0.00-0.04) X 10*3/uL Neutrophils # 10.65 H 11.0 H (1.80-7.70) X 10*3/uL Monocytes # 1.26 H 1.1 H (0.20-1.00) X 10*3/uL Eosinophils # 0.02 L (0.04-0.35) X 10*3/uL Sodium 134 L (135-145) mmol/L Creatinine 0.5 L (0.6-1.5) mg/dL BUN/Creatinine Ratio 26.08 H (12.00-20.00) Ratio Glucose 153 H (70-110) mg/dL Calcium (8.4-10.2) mg/dL 03/24/22 Range/Units 05:02 WBC (4.50-10.00) X 10*3/uL Immature Gran # (0.00-0.04) X 10*3/uL Neutrophils # (1.80-7.70) X 10*3/uL Monocytes # (0.20-1.00) X 10*3/uL Eosinophils # (0.04-0.35) X 10*3/uL Sodium 132 L (135-145) mmol/L Creatinine 0.43 L (0.6-1.5) mg/dL BUN/Creatinine Ratio (12.00-20.00) Ratio Glucose 153 H (70-110) mg/dL Calcium 8.2 L (8.4-10.2) mg/dL Assessment and Plan Plan: Postop day #1, status post C2-T2 decompression and fusion, secondary to an acute C4 fracture, from a fall.follow-up CAT scan of the neck showed postsurgical changes. Surgery was done for a C4 fracture following a fall.. Neurologically, the patient is intact and the patient is moving 4 extremities.MATIAS drain in her neck with minimal amount of output and the patient has had a CAT scan of the neck this is showing essentially stable postsurgical changes. No hoarseness. No difficulties with swallowing. Pain is under adequate control for now. The patient wanted all 4 extremities. Fall with trauma to the face and areas of bruising in her extremities. No fractures other than the C4 spine fracture. History of hyperlipidemia. History of hypertension. History of gastroesophageal reflux disease. History of overactive bladder. Prior history of cataract surgery. Plan: continue supportive care, pain control, Dilaudid, and the patient is on normal sed rate of 75 mL an hour. Keep a hard neck collar for now. Provide the patient incentive spirometer. Use heparin subcu once cleared by spine surgery. Keep the compression devices for now. The patient can be transferred out of the intensive care unit.
[2022-03-24] MEDS: SODIUM CHLORIDE 0.9% 1,000 ML IV SCH (12:50)
[2022-03-24] MEDS: LACTATED RINGERS 1,000 ML IV SCH (12:53)
--- NOTE | 2022-03-24 13:39 | P.OP ---
Date of Procedure: 03/23/22 Preoperative Diagnosis: 1. C4 AO Type B3 extension fracture, unstable, Neuro intact 2. Facial trauma, BHT 3. s/p ffs Postoperative Diagnosis: 1. C4 AO Type B3 extension fracture, unstable, Neuro intact 2. Facial trauma, BHT 3. s/p ffs Procedure(s) Performed: 1. Open treatment C4 AO type B3 extension injury, unstable (92743) 2. Posteriolateral instrumented fusion C2-T1 (94917, [id number]) 3. Segmental instrumentation C2-T1 (73294) 4. Bilateral laminectomy partial medial facetectomy and foraminotomy C2-7 (61956/59, 96693/59x4 Implants: -Blade screw and alma system -MagnatoOs -Caitie -DBM -Autograft Anesthesia: JUDITHA Surgeon: Amos Chisholm Hot Roller #1: To Paige Estimated Blood Loss (ml): 150 Pathology: none sent Condition: stable Disposition: PACU Indications for Procedure: Ninoska Corona is a 82 yo female presenting for evaluation of Neck pain, BHT, fall from standing. It was my pleasure to have seen and examined Ninoska Corona In our visit today we have had a chance to go over subjective complaints, physical examination findings and treatments including the natural course history without intervention and various interventional options. 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 On physical exam, Ninoska Corona demonstrates Neurovascualryly intact with some weakness globally in UE and LE 4- 4+/5 without focal deficit. She has lacerations to her face and lip as well as contusions to her right hand, head, and facial area. She has TTP about the Cervical and Thoracic spine midline as well as paraspinal w/o TTP of the lumbar spine at this time. Neg log roll b/l LE and Neg pain in any other major joints at this time. I have explained to the patient that as their condition progresses it will cause further neurological deficits and eventual paralysis. Based on the patients imaging, physical exam, and the rapid progression and disabling nature of their symptoms, at this time I recommend surgery in the form or a: C2-T2 posterior open stabilization, decompression and treatment of C4 fracture. I discussed the risk and benefits of this procedure at length with Ninoska Corona . The patient and her family who was at bedside agreed to considered pursuing the procedure abovementioned. Prior to surgery, she should follow up with her PCP (Cardio, ID, IM etc) for clearance. Questions were invited and answered, and the patient wishes to proceed as outlined below. Currently, I am recommendin. Open treatment C4 fracture with C2-T2 decompression and fusion 2. Follow up with PCP for surgical clearance 3. Review of surgical risks and benefits as well as an educational packet on the proposed surgical procedure. Description of Procedure: The patient was seen and examined in the preoperative area. All preoperative protocols were followed. Informed consent was obtained risks and benefits of the procedure were discussed at length. Risks including bleeding infection damage to the surrounding tissue and risk of reoperation were discussed with the patient. Risk of anesthesia up to and including was a discussed with the patient. These are outlined in the risk review. They were willing to accept these risks and all of the risks of surgery. The patient was given a weight- based dose of antibiotics in the form of 2 g Ancef. The patient was seen and evaluated by the anesthesia team who deemed them fit for surgery. The site was marked, the patient was willing to proceed with the procedure. The patient was transferred to the operative suite by the Department of anesthesia. They were then drifted off to sleep by the department anesthesia and GETA was performed. The patient tolerated this well. Car catheter was placed by nursing staff, atraumatically. Pre-flip motors were performed for baseline. Once confirmation of lines and ventilation the patient was placed into a Nunez desizing machine operator head end and carefully transferred to a prone Edgard table. The Nunez desizing machine operator head end was connected and the patient was kept in her cervical collar during this flip. Once in position the Nunez desizing machine operator head end was secured and locked. X-ray was promptly brought in to visualize her position so as to not accentuate her fracture during the rest of positioning. Lateral x-ray showed the fracture at C4 her head was repositioned into a better spot and locked into position here x-ray confirmed a reduced fracture. Motors were run after this and were stable All bony prominences including wrists, elbows, axilla, chest, hips, and thighs, and feet were padded very well. Special attention was paid to the genitalia and these were padded accordingly. SCDs were placed on bilateral lower extremities and were connected. Arms were well padded and placed tucked at her side well-padded thumbs down. Once in position, again we confirmed good ventilation capabilities and that lines were running appropriately. The patient's posterior cervical spine was then exposed. 1010s were placed outlining the incision site. Standard alcohol was used to clean the incision site and allowed to dry. C-arm was used to biomark the patient and confirm level for incision which was marked with a skin marker. Operative briefing was performed with all teams and everyone in agreement to proceed. The patient was then prepped and draped in a normal sterile fashion. Timeout was then performed and all parties were in agreement with the procedure to be performed. Midline skin incision was made over previously biomarked area and disscetion taken down midline until C2 SP was identified as well as T2 SP. The SP of subaxial C spine was then identified and C4 was grossly unstable. Subperiosteal dissection was then taken down over the lamina of C2 through T2. Dissection was taken out to the transverse process of T1 as well as over the lateral masses of subaxial cervical spine CT was dissected out over the C2-C3 joint and up to the lateral axilla membrane. Blunt dissection was then taken over the cranial portion of the C2 lamina to identify the C2 pars and pedicle a [place] 4 was placed on this as a guide on the medial border. We then placed C2 screws bilaterally using lateral x-ray. High-speed bur was used to make a steamboat pilot hole followed by sequential drilling of 2 mm at a time. The drill was placed and lateral x-rays were taken we had measured on the left-hand side a shorter screw due to a high riding vertebral artery and so a 12 mm screw was selected and placed which was a 4.0 screw. We then repeated this on the right-hand side and placed a 14 mm screw on the side. AP confirmed safe placement of the screws. We then proceeded with placement of lateral mass screws steamboat pilot hole was made in the facet joints were decorticated using high-speed bur was steamboat pilot holes were made and these were then drilled to 10 mm and 12 mm screws were selected and placed under lateral fluoroscopic guidance. We then proceeded with T1 screws placing these bilaterally using AP and lateral fluoroscopy high-speed bur was used to make a steamboat pilot hole followed by a pedicle finder and feeler to ensure within the sanchez of the pedicle. Once this was confirmed the screw was measured and selected and placed. Motors remained stable throughout this whole time. We then selected rods and bent them accordingly to allow for reduction of the fracture as well as stabilization. The rods were then placed into the heads of the screws and set screws were then placed. The set screws were final tightened into position. We then performed bilateral laminectomy partial medial facetectomy and foraminotomy at C2 through C7 using high-speed bur and Kerrisons. The lamina was then removed and used as local bone graft. We ran motors before and after her decompression and motors improved after decompression and stabilization. We then thoroughly irrigated the wound with 3 L of anabolic solution followed by 3 L of normal sterile saline and a cross-link was selected and placed meticulous hemostasis was performed. We then took final fluoroscopic images which confirmed reduction of the fracture good alignment as well as good placement of hardware. We then placed 2 g of vancomycin powder deep within the wound we placed graft in the posterior lateral gutters a mixture of autograft allograft and DBM. We then placed a deep drain and sewed in position. We then proceeded with layered closure the fascial layer was closed with #1 PDS in a [id number] fashion deep subcu tissue closed with 0 Vicryl superficial subcu tissue closed with 2-0 Vicryl and skin closed with skin francia the wound edges approximated very well neuro Indications. The wound was then cleaned and dressed sterilely with a operative foam dressing 4 x 4 and Tegaderms. The patient was then carefully transferred back to their hospital bed atraumatically. Nunez clamp was removed and all pin sites were dry. She was immediately placed into a hard cervical collar. Drain continued to hold suction and were in good position. Patient was then awakened and extubated by the department of anesthesia having tolerated the procedure very well with no complications. They were transferred to the ICU in stable condition.
--- NOTE | 2022-03-24 14:35 | P.PN ---
Subjective Progress Note Date: 03/24/22 Principal diagnosis: C4 AO Type B3 extension fracture Status post C2-T1 posterior instrumentation with fusion Patient was evaluated today, she is resting in the ICU. She is currently utilizing the hard c-collar at this time. She is alert and oriented and answering all my questions adequately. She does notice some discomfort on the back side of her neck and head. The drain is putting out a moderate amount of serous edematous fluid at this time. She denies any paresthesias or obvious weakness of the upper extremities. She denies any paresthesias of the bilateral lower extremities. She denies any perineal or genital numbness or tingling at this time. Objective - Vital Signs Vital signs: Vital Signs Temp 98.4 F 03/24/22 12:00 Pulse 90 03/24/22 14:00 Resp 28 H 03/24/22 14:00 BP 142/76 03/24/22 14:00 Pulse Ox 93 L 03/24/22 14:00 FiO2 Intake & Output 03/23/22 03/24/22 03/24/22 18:59 06:59 18:59 Intake Total 3050 975 765 Output Total 530 635 500 Balance 2520 340 265 Weight 82.1 kg Intake: IV 2850 975 525 Sodium Chloride 0.9% 1, 300 975 525 000 ml @ 75 mls/hr IV . [id number] [facility] Rx#:[id number] ceFAZolin 2 gm In Sodium 50 Chloride 0.9% 50 ml @ 100 mls/hr IVPB Q8H [facility] Rx#: [id number] Oral 200 240 Output: Drainage 50 100 Right Neck 50 100 Urine 330 535 500 Estimated Blood Loss 150 Other: Voiding Method Indwelling Catheter Indwelling Catheter Indwelling Catheter ABP, PAP, CO, CI - Last Documented Arterial Blood Pressure 09/14 - Exam Gen: AOx3, NAD VSS stable at this time Integument: Postoperative bandage is clean, dry and intact, mild spotty drainage noted. Drainage has moderate amount of serosanguineous fluid at this time Palpation: Mild tenderness with palpation in the paraspinal region of the cervical spine ROM: Full range of motion in all major muscle groups of bilateral upper and lower extremities Sensory Exam: Senory exam to light touch is intact C5-T1 Senosry exam to light touch is intact L2-S1 Motor: 5/5 strength in the bilateral lower extremities with hip flexion, extension, knee flexion, plantar flexion, dorsiflexion, EHL, FHL 45 strength appreciated in the bilateral upper extremities with shoulder abduction, shoulder elevation, elbow extension, elbow flexion, wrist extension, wrist flexion, morning news anchor Reflexes: 2/4 in all UE and LE negative Mauro's bilaterally, negative clonus bilaterally, negative bilateral - Labs CBC & Chem 7: 03/24/22 05:02 03/24/22 05:02 Labs: Abnormal Lab Results - Last 24 Hours (Table) 03/24/22 03/24/22 Range/Units 05:02 05:02 WBC 14.2 H (3.8-10.6) k/uL Neutrophils # 11.0 H (1.3-7.7) k/uL Monocytes # 1.1 H (0-1.0) k/uL Sodium 132 L (137-145) mmol/L Creatinine 0.43 L (0.52-1.04) mg/dL Glucose 153 H (74-99) mg/dL Calcium 8.2 L (8.4-10.2) mg/dL Assessment and Plan Assessment: C4 AO Type B3 extension fracture Postoperative day #1 status pos C2-T1 posterior lateral stabilization with fusion Status post fall, trauma, blunt trauma Other medical comorbidities Plan: Pain control, continue with her current medications Continue use of hard c-collar at this time Drains remain in place, we'll continue to monitor and discontinue in the next day or so Dressing change on 03/25/2022 Encourage incentive spirometer weight-bear as tolerated, utilize walker PT/OT evaluation Other medical specialty recommendations appreciated We'll continue to follow
--- NOTE | 2022-03-24 16:28 | P.PN ---
Subjective Progress Note Date: 03/24/22 Patient is an 82-year-old lady with a past medical history of hypertension, dyslipidemia, and GERD who presented to the ER after a fall.She was found to have a C4 cervical fracture. Patient seen and examined at bedside. Pain is currently managed. She states she is eating and drinking okay. Denies any chest pain or shortness of breath. General: nontoxic, no distress, appears at stated age Derm: warm, dry Head: hard cervical collar in place, bruising on her chin with laceration to bottom lip on the left Eyes: EOMI, no lid lag, anicteric sclera Mouth: no lip lesion, mucus membranes dry Cardiovascular: S1S2 reg, no murmur, positive posterior tibial pulse bilateral, Lungs: Decreased bs bilateral, no rhonchi, no rales , no accessory muscle use Abdominal: soft, nontender to palpation, no guarding, no appreciable organomegaly Ext: no gross muscle atrophy, no edema, no contractures Neuro: CN II-XI grossly intact, no focal neuro deficits Psych: Alert, oriented, appropriate affect Assessment/plan: 82-year-old female status post fall with C4 fracture. Fracture management by orthopedic team. Hypertension - follow BP - norvasc Hyperlipidemia - statin Leukocytosis -Likely reactive -Stable -Follow CBC GERD -PPI and H2 elliot C4 cervical fracture -Management per orthopedic surgery team Tachycardia, resolved DVT prophylaxis: per ortho Discussed with: patient, nursing Anticipated discharge: per ortho Anticipated discharge place: per ortho A total of 35 minutes was spent on the care of this complex patient more than 50% of the time was spent in counseling and care coordination. Active Medications Generic Name Dose Route Start Last Admin Trade Name Freq PRN Reason Stop Dose Admin Acetaminophen 650 mg 03/23/22 18:00 03/24/22 06:37 Acetaminophen Tab 325 Mg Tab PO 650 mg Q6HR [facility] Administration Hydrocodone Bitart/Acetaminophen 1 each 03/23/22 12:07 Hydrocodone/Apap 5-325mg 1 Each Tab PO Q6HR PRN Pain Scale 4 - 6 Hydrocodone Bitart/Acetaminophen 1 each 03/23/22 12:07 03/24/22 03:22 Hydrocodone/Apap 10-325mg 1 Each Tab PO 1 each Q6H PRN Administration Pain Scale 7 - 10 Amlodipine Besylate 10 mg 03/22/22 14:15 03/23/22 07:26 Amlodipine 10 Mg Tab PO Not Given DAILY [facility] Cyclobenzaprine HCl 5 mg 03/23/22 12:07 Cyclobenzaprine 5 Mg Tab PO TID PRN Muscle Spasm Famotidine 40 mg 03/22/22 14:15 03/23/22 07:26 Famotidine 20 Mg Tab PO Not Given DAILY [facility] Fenofibrate 160 mg 03/23/22 09:00 03/23/22 07:26 Fenofibrate 160 Mg Tab PO Not Given DAILY [facility] Hydromorphone HCl 0.5 mg 03/23/22 12:07 03/23/22 20:56 Hydromorphone 0.5 Mg/0.5 Ml Syringe IVP 0.5 mg Q3HR PRN Administration Pain Scale 4 - 6 Hydromorphone HCl 1 mg 03/23/22 12:07 03/23/22 15:53 Hydromorphone 1 Mg/Ml 1 Ml Syringe IVP 1 mg Q3HR PRN Administration Pain Scale of 7 - 10 Hydromorphone HCl 0.5 mg 03/24/22 07:00 Hydromorphone 0.5 Mg/0.5 Ml Syringe IVP 03/24/22 23:00 Q5M PRN Phase 1 or 2 - Pain Control Sodium Chloride 1,000 mls @ 75 mls/hr 03/22/22 17:45 03/23/22 22:13 Saline 0.9% IV 75 mls/hr .[id number] [facility] Administration Lactated Ringer's 1,000 mls @ 20 mls/hr 03/23/22 12:29 03/23/22 13:53 Lactated Ringers IV Not Given .Q24H [facility] Lidocaine HCl 0.1 ml 03/23/22 12:29 Lidocaine 1% (10mg/Ml) For Iv Start INTRADERMA PER PROTOCOL PRN IV Start Morphine Sulfate 4 mg 03/22/22 12:03 03/23/22 06:29 Morphine Sulfate 4 Mg/Ml Syringe IV 4 mg Q4HR PRN Administration Severe Pain (Scale 7 to 10) Naloxone HCl 0.2 mg 03/22/22 11:42 Naloxone 0.4 Mg/Ml 1 Ml Vial IV Q2M PRN Opioid Reversal Ondansetron HCl 4 mg 03/24/22 07:00 Ondansetron 4 Mg/2 Ml Vial IVP 03/24/22 23:00 ONCE PRN Phase 1 or 2 - Nausea/Vomiting Pantoprazole Sodium 40 mg 03/24/22 09:00 Pantoprazole 40 Mg Tablet PO AC-BRKFST [facility] Pravastatin Sodium 80 mg 03/24/22 21:00 Pravastatin Sodium 80 Mg Tab PO HS [facility] Senna/Docusate Sodium 2 each 03/23/22 12:07 Sennosides-Docusate Sodium 1 Each Tab PO DAILY PRN Constipation Objective - Vital Signs Vital signs: Vital Signs Temp 98.8 F 03/24/22 04:00 Pulse 90 03/24/22 07:00 Resp 21 03/24/22 07:00 BP 150/83 03/24/22 07:00 Pulse Ox 94 L 03/24/22 07:00 FiO2 Intake & Output 03/23/22 03/24/22 03/24/22 18:59 06:59 18:59 Intake Total 3050 975 Output Total 530 635 Balance 2520 340 Weight 82.1 kg Intake: IV 2850 975 Sodium Chloride 0.9% 1, 300 975 000 ml @ 75 mls/hr IV . [id number] [facility] Rx#:[id number] ceFAZolin 2 gm In Sodium 50 Chloride 0.9% 50 ml @ 100 mls/hr IVPB Q8H [facility] Rx#: [id number] Oral 200 Output: Drainage 50 100 Right Neck 50 100 Urine 330 535 Estimated Blood Loss 150 Other: Voiding Method Indwelling Catheter Indwelling Catheter ABP, PAP, CO, CI - Last Documented Arterial Blood Pressure 145/61 - Labs CBC & Chem 7: 03/24/22 05:02 03/24/22 05:02 Labs: Abnormal Lab Results - Last 24 Hours (Table) 03/23/22 03/23/22 03/24/22 Range/Units 06:29 06:29 05:02 WBC 14.86 H 14.2 H (4.50-10.00) X 10*3/uL Immature Gran # 0.07 H (0.00-0.04) X 10*3/uL Neutrophils # 10.65 H 11.0 H (1.80-7.70) X 10*3/uL Monocytes # 1.26 H 1.1 H (0.20-1.00) X 10*3/uL Eosinophils # 0.02 L (0.04-0.35) X 10*3/uL Sodium 134 L (135-145) mmol/L Creatinine 0.5 L (0.6-1.5) mg/dL BUN/Creatinine Ratio 26.08 H (12.00-20.00) Ratio Glucose 153 H (70-110) mg/dL Calcium (8.4-10.2) mg/dL 03/24/22 Range/Units 05:02 WBC (4.50-10.00) X 10*3/uL Immature Gran # (0.00-0.04) X 10*3/uL Neutrophils # (1.80-7.70) X 10*3/uL Monocytes # (0.20-1.00) X 10*3/uL Eosinophils # (0.04-0.35) X 10*3/uL Sodium 132 L (135-145) mmol/L Creatinine 0.43 L (0.6-1.5) mg/dL BUN/Creatinine Ratio (12.00-20.00) Ratio Glucose 153 H (70-110) mg/dL Calcium 8.2 L (8.4-10.2) mg/dL
[2022-03-25] MEDS: ACETAMINOPHEN TAB 325 MG TAB PO SCH ×5 (00:33→23:20)
[2022-03-25] MEDS: SODIUM CHLORIDE 0.9% 1,000 ML IV SCH (00:34)
[2022-03-25] MEDS: HYDROcodone/APAP 10-325MG 1 EACH TAB PO PRN (02:24)
[2022-03-25 06:10] LABS: HCT 37.3 % (34.0-46.0); HGB 12.5 gm/dL (11.4-16.0); MCH 29.5 pg (25.0-35.0); MCHC 33.4 g/dL (31.0-37.0); MCV 88.2 fL (80.0-100.0); Mean Platelet Volume 7.5; Platelet Count 234 k/uL (150-450); RBC 4.23 m/uL (3.80-5.40); RDW 12.8 % (11.5-15.5); WBC 16.8 k/uL (3.8-10.6)
[2022-03-25 06:29] LABS: African American GFR (CKD) >90 (>60 ml/min/1.73 sqM); Anion Gap 7 mmol/L; Blood Urea Nitrogen 9 mg/dL (7-17); Calcium 8.4 mg/dL (8.4-10.2); Carbon Dioxide 28 mmol/L (22-30); Chloride 100 mmol/L (98-107); Glucose 132 mg/dL (74-99); Non-African American GFR(CKD) >90 (>60 ml/min/1.73 sqM); Potassium 3.9 mmol/L (3.5-5.1); Sodium 135 mmol/L (137-145)
[2022-03-25] MEDS: FENOFIBRATE 160 MG TAB PO SCH (09:37)
[2022-03-25] MEDS: PANTOPRAZOLE 40 MG TABLET PO SCH (09:37)
[2022-03-25] MEDS: amLODIPine 10 MG TAB PO SCH (09:37)
[2022-03-25] MEDS: FAMOTIDINE 20 MG TAB PO SCH (09:37)
--- NOTE | 2022-03-25 10:13 | P.PN ---
Subjective Progress Note Date: 03/25/22 83-year-old female, who presented to the emergency room on March 22, after getting out of bed earlier, and apparently tripping and falling, while going to the restroom. She apparently complained of neck pain posteriorly. Is not clear whether or not there was loss of consciousness. She apparently did have a laceration to the left lower lip, which occurred during the fall, and a bruise and swelling to the right hand. MRI of the spine, showed an acute C4 fracture, with prevertebral soft tissue edema without retropulsion or abnormality of the cervical cord. The patient underwent a C2 to T2 decompression and fusion today by Dr. Chisholm, and the patient is brought into the intensive care unit for further monitoring and management. Currently, she has a cervical collar in place, is on 4 L of oxygen, and receiving lactated Ringer's at 75 mL an hour. White count 14.9, hemoglobin 15, hematocrit 44.9, and platelet count is 311,000. Coags are normal. Sodium 134, potassium 4.1, chlorides 99, CO2 23, anion gap is 12, BUN is 13, and creatinine 0.5. Glucose 153. Urinalysis is negative. Head CT is negative. Right knee x-ray is negative. CT of the chest abdomen and pelvis shows changes of ankylosing spondylitis in the thoracic and lumbar spine. On 03/24/2022, the patient is being seen for a follow-up. The patient is post multilevel decompression and fusion involving the cervical spine. The patient was activated successfully. She is doing well. She still wearing a hard neck collar. She is able to move all 4 extremities without any limitation. Her pain is under adequate control pitches and oxygen at 2 L and her current pulse ox 96%. Cardiac rhythm is sinus. No chest pain. Car catheter in place. The patient is producing adequate amount of urine output. Linden is a 40 with a creatinine of 0.4. The white cell causes 14.2 with a hemoglobin 12.5 and a platelet count of 235. UA is negative for now. The patient has been communicating. The patient has no specific complaint otherwise for now. She is on Dilaudid for pain control. Her home medications and resume. In terms of DVT prophylaxis, the patient has compression devices. The patient underwent a follow-up C-spine CAT scan today and the patient was found to have postsurgical changes and cervical fusion involving C2 through T1 along with some soft tissue edema and some gas related to recent surgery. There was redemonstration of the acute/subacute C4 fracture that was also seen on a CAT scan of the day neck from 03/22/2022. 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 IV fluids as in the form of normal saline at rate of 75 mL an hour. 03/25/2022, the patient is awake and alert and she is 104 extremities. Her pain is under adequate control for now. The patient had a fall and she had a C4 spine fracture and she underwent multilevel cervical fusion and stabilization of the cervical spine. She is still wearing a hard neck collar. Car catheter is in place. Adequate urine output. CAT scan of the neck that was done postop was noted and is essentially showing postsurgical changes. The white cell count at 16.8 with hemoglobin 12.5. Electrolytes are all stable. Renal function stable with a creatinine of 0.9. The patient has compression devices on the lower extremities and she will also be started on Lovenox if clearance was given by the spine surgeon. She is tolerating diet. Nausea. No emesis. No altered mentation. No other significant events. She has a MATIAS drain in her neck area without any significant outputs. I noted a low-grade temperature of 100.1 Objective - Vital Signs Vital signs: Vital Signs Temp 100.1 F H 03/25/22 08:00 Pulse 97 03/25/22 09:00 Resp 13 03/25/22 09:00 BP 148/84 03/25/22 09:00 Pulse Ox 92 L 03/25/22 09:00 FiO2 Intake & Output 03/24/22 03/25/22 03/25/22 18:59 06:59 18:59 Intake Total 1260 900 225 Output Total 785 1295 350 Balance 475 -395 -125 Weight 81.3 kg Intake: IV 900 900 225 Sodium Chloride 0.9% 1, 900 900 225 000 ml @ 75 mls/hr IV . [id number] [facility] Rx#:[id number] Oral 360 Output: Drainage 60 10 Right Neck 60 10 Urine 725 1285 350 Other: Voiding Method Indwelling Catheter Indwelling Catheter Indwelling Catheter ABP, PAP, CO, CI - Last Documented Arterial Blood Pressure 09/14 - Exam No acute distress, sedated, from the effects of the anesthetic, in no acute distress, no respiratory distress, currently on 2 L. HEENT examination is grossly unremarkable. Neck is in a cervical collar. Cardiovascular examination reveals regular rhythm rate. S1-S2 normal. No S3 or S4. No discernible murmur noted. Lungs reveal clear breath sounds. Breath sounds are equal bilaterally. No adve ntitious lung sounds including wheezes rhonchi or crackles. Abdomen soft, without bowel sounds. No masses. Extremities are intact. No cyanosis clubbing or edema. Skin is without rash or lesion. Neurologic examination is difficult to evaluate given her level of sedation. - Labs CBC & Chem 7: 03/25/22 05:23 03/25/22 05:23 Labs: Abnormal Lab Results - Last 24 Hours (Table) 03/25/22 03/25/22 Range/Units 05:23 05:23 WBC 16.8 H (3.8-10.6) k/uL Sodium 135 L (137-145) mmol/L Creatinine 0.42 L (0.52-1.04) mg/dL Glucose 132 H (74-99) mg/dL Assessment and Plan Plan: Postop day #2, status post C2-T2 decompression and fusion, secondary to an acute C4 fracture, from a fall.follow-up CAT scan of the neck showed postsurgical changes. Surgery was done for a C4 fracture following a fall.. Neurologically, the patient is intact and the patient is moving 4 extremities.MATIAS drain in her neck with minimal amount of output and the patient has had a CAT scan of the neck this is showing essentially stable postsurgical changes. No hoarseness. No difficulties with swallowing. Pain is under adequate control for now. The patient wanted all 4 extremities. Fall with trauma to the face and areas of bruising in her extremities. No fractures other than the C4 spine fracture. History of hyperlipidemia. History of hypertension. History of gastroesophageal reflux disease. History of overactive bladder. Prior history of cataract surgery. Plan: Monitor the fever pattern Obtain a baseline chest x-ray and urine cultures and able fully catheter possible White cell count is not elevated Physical therapy Increase mobility MATIAS drain management per surgery We'll continue to follow patient is able to leave the ICU today. obtain an Okay from spine surgery regarding Lovenox
--- NOTE | 2022-03-25 11:05 | XR ---
EXAMINATION TYPE: XR chest 1V portable DATE OF EXAM: 03/25/2022 COMPARISON: Chest x-ray 05/17/2017, CT 03/22/2022 HISTORY: Dyspnea TECHNIQUE: Single frontal view of the chest is obtained. FINDINGS: Lung volumes are low. Patchy basilar density is noted. No evident pneumothorax or pleural effusion. The osseous structures are stable, thickened posterior right third and fourth ribs unchange d, postop changes are noted to the cervical thoracic spine. Arthropathy is noted in the shoulders. Co ntrast is present within the bowel. IMPRESSION: Probable basilar atelectasis.
[2022-03-25 11:34] LABS: Appearance,Urine Clear (Clear); Bacteria,Urine Rare /hpf; Bilirubin,Urine Negative (Negative); Blood,Urine Negative (Negative); Color,Urine Colorless; Glucose,Urine (UA) Negative (Negative); Ketones,Urine Negative (Negative); Leukocyte Esterase,Urine Moderate (Negative); Nitrite,Urine Negative (Negative); Protein,Urine Negative (Negative); Specific Gravity,Urine 1.004 (1.001-1.035); Squamous Epithelial Cell,Urine <1 /hpf (0-4); Urobilinogen,Urine <2.0 mg/dL (<2.0); WBC,Urine 3 /hpf (0-5)
[2022-03-25] MEDS: LACTATED RINGERS 1,000 ML IV SCH (12:58)
[2022-03-25] MEDS: HYDROcodone/APAP 5-325MG 1 EACH TAB PO PRN ×2 (13:31→23:21)
--- NOTE | 2022-03-25 15:27 | P.PN ---
Subjective Progress Note Date: 03/25/22 Principal diagnosis: 1. C4 AO Type B3 extension fracture, unstable, Neuro intact 2. Facial trauma, BHT 3. s/p ffs Patient seen at bedside this afternoon sitting up in chair with c-collar on. Surgical dressing is present over incision, saturated. Drain is still present with low output. Patient does respond questions during encounter, however, patient appears somewhat groggy and fatigued. Family is present during encounter. Patient says she does have some neck pain at this time. Patient is wondering when she will be able to go home. Patient says she did get up with therapy and nurse at bedside and was able to sit in the chair. Patient denies chest pain, fever, shortness of breath, nausea, vomiting, change in vision. Patient denies any numbness/tingling in the bilateral upper and lower extremities. Patient denies any saddle anesthesia. Objective - Vital Signs Vital signs: Vital Signs Temp 99.1 F 03/25/22 13:00 Pulse 108 H 03/25/22 13:00 Resp 16 03/25/22 13:00 BP 153/82 03/25/22 13:00 Pulse Ox 92 L 03/25/22 13:00 FiO2 Intake & Output 03/24/22 03/25/22 03/25/22 18:59 06:59 18:59 Intake Total 1260 900 405 Output Total 785 1295 950 Balance 475 -395 -545 Weight 81.3 kg Intake: IV 900 900 285 Sodium Chloride 0.9% 1, 900 900 285 000 ml @ 75 mls/hr IV . [id number] [facility] Rx#:[id number] Oral 360 120 Output: Drainage 60 10 Right Neck 60 10 Urine 725 1285 950 Other: Voiding Method Indwelling Catheter Indwelling Catheter Indwelling Catheter ABP, PAP, CO, CI - Last Documented Arterial Blood Pressure 09/14 - Exam Hard cervical collar is present on patient. Surgical drain is in place with surgical dressing. Drain was removed and drained sponge and Tegaderm was placed over drain incision. Surgical dressing was removed and new optifoam dressing was placed over incision. Incision appears to be healing well at this time. Jaya are well aligned. There was some serous drainage present from drain incision when drain was removed. Patient does have some mild tenderness to palpation along incision on cervical spine. Patient is nontender to palpation throughout rest exam. Sensation is equal, symmetric, bilaterally intact throughout the upper and lower extremity. Patient does have full range of motion bilateral upper and lower extremities on exam. 4+/5 in all major motor groups in the bilateral upper and lower extremities on exam. Radial pulse intact, 2+ bilateral. Cap refill under 3 seconds in digits of upper extremities. Negative Homans bilaterally. Negative clonus bilaterally. - Labs CBC & Chem 7: 03/25/22 05:23 03/25/22 05:23 Labs: Abnormal Lab Results - Last 24 Hours (Table) 03/25/22 03/25/22 03/25/22 Range/Units 05:23 05:23 11:02 WBC 16.8 H (3.8-10.6) k/uL Sodium 135 L (137-145) mmol/L Creatinine 0.42 L (0.52-1.04) mg/dL Glucose 132 H (74-99) mg/dL Ur Leukocyte Esterase Moderate H (Negative) Urine Bacteria Rare H (None) /hpf Assessment and Plan Assessment: 1. C4 AO Type B3 extension fracture, unstable, Neuro intact; Facial trauma, BHT - post-op day #2 Status post open treatment C4 AO type BIII extension injury; posterior lateral attachment fusion C2-C1; bilateral laminectomy, foraminotomy C2-C7 Plan: 1. C4 AO Type B3 extension fracture, unstable, Neuro intact; Facial trauma, BHT - surgery performed 03/23/2022 - open treatment C4 AO type BIII extension injury; posterior lateral attachment fusion C2-C1; bilateral laminect kamryn, foraminotomy C2-C7 Patient stable at bedside this afternoon. Drain was removed and neurosurgical dressing was placed over incision. Incision appears to be healing well at this time. Plan is for patient to go to [facility] upon discharge. We will continue to follow patient during her stay in hospital. 2. appreciate medical management 3. Pain management - Stebbins; Flexeril; IV pain meds only as necessary 4. GI prophylaxis - Pepcid; Protonix; senna 5. DVT prophylaxis - mechanical 6. PT/OT - weightbearing as tolerated with walker and c-collar on at all times 7. Encourage incentive spirometer use 8. Discharge planning - pending to [facility] Time with Patient: Less than 30
--- NOTE | 2022-03-25 18:00 | P.PN ---
Subjective Progress Note Date: 03/25/22 (delayed charting seen at 0935) Patient is an 82-year-old lady with a past medical history of hypertension, dyslipidemia, and GERD who presented to the ER after a fall.She was found to have a C4 cervical fracture. Patient seen and examined at bedside. Doing well. He was a temperature yesterday. Still has some difficulty feeding herself the pain is well controlled. Denies any shortness of breath. General: nontoxic, no distress, appears at stated age Derm: warm, dry Head: hard cervical collar in place, bruising on her chin with laceration to bottom lip on the left Eyes: EOMI, no lid lag, anicteric sclera Mouth: no lip lesion, mucus membranes dry Cardiovascular: S1S2 reg, no murmur, positive posterior tibial pulse bilateral, Lungs: Decreased bs bilateral, no rhonchi, no rales , no accessory muscle use Abdominal: soft, nontender to palpation, no guarding, no appreciable organome cass Ext: no gross muscle atrophy, no edema, no contractures Neuro: CN II-XI grossly intact, no focal neuro deficits Psych: Alert, oriented, appropriate affect Assessment/plan: 82-year-old female status post fall with C4 fracture. Fracture management by orthopedic team. Hypertension - follow BP - norvasc Hyperlipidemia - statin Leukocytosis -Likely reactive -Stable -Follow CBC GERD -PPI and H2 elliot Chronic anemia, improved -Stop IV fluids C4 cervical fracture -Management per orthopedic surgery team Tachycardia, resolved DVT prophylaxis: per ortho Discussed with: patient, nursing Anticipated discharge: per ortho Anticipated discharge place: per ortho A total of 35 minutes was spent on the care of this complex patient more than 50% of the time was spent in counseling and care coordination. Active Medications Generic Name Dose Route Start Last Admin Trade Name Freq PRN Reason Stop Dose Admin Acetaminophen 650 mg 03/23/22 18:00 03/25/22 17:37 Acetaminophen Tab 325 Mg Tab PO 650 mg Q6HR ZORA Administration Hydrocodone Bitart/Acetaminophen 1 each 03/23/22 12:07 03/25/22 13:31 Hydrocodone/Apap 5-325mg 1 Each Tab PO 1 each Q6HR PRN Administration Pain Scale 4 - 6 Hydrocodone Bitart/Acetaminophen 1 each 03/23/22 12:07 03/25/22 02:24 Hydrocodone/Apap 10-325mg 1 Each Tab PO 1 each Q6H PRN Administration Pain Scale 7 - 10 Amlodipine Besylate 10 mg 03/22/22 14:15 03/25/22 09:37 Amlodipine 10 Mg Tab PO 10 mg DAILY ZORA Administration Cyclobenzaprine HCl 5 mg 03/23/22 12:07 Cyclobenzaprine 5 Mg Tab PO TID PRN Muscle Spasm Famotidine 40 mg 03/22/22 14:15 03/25/22 09:37 Famotidine 20 Mg Tab PO 40 mg DAILY ZORA Administration Fenofibrate 160 mg 03/23/22 09:00 03/25/22 09:37 Fenofibrate 160 Mg Tab PO 160 mg DAILY ZORA Administration Hydromorphone HCl 0.5 mg 03/23/22 12:07 03/23/22 20:56 Hydromorphone 0.5 Mg/0.5 Ml Syringe IVP 0.5 mg Q3HR PRN Administration Pain Scale 4 - 6 Hydromorphone HCl 1 mg 03/23/22 12:07 03/23/22 15:53 Hydromorphone 1 Mg/Ml 1 Ml Syringe IVP 1 mg Q3HR PRN Administration Pain Scale of 7 - 10 Lactated Ringer's 1,000 mls @ 20 mls/hr 03/23/22 12:29 03/25/22 12:58 Lactated Ringers IV Not Given .Q24H ZORA Lidocaine HCl 0.1 ml 03/23/22 12:29 Lidocaine 1% (10mg/Ml) For Iv Start INTRADERMA PER PROTOCOL PRN IV Start Morphine Sulfate 4 mg 03/22/22 12:03 03/23/22 06:29 Morphine Sulfate 4 Mg/Ml Syringe IV 4 mg Q4HR PRN Administration Severe Pain (Scale 7 to 10) Naloxone HCl 0.2 mg 03/22/22 11:42 Naloxone 0.4 Mg/Ml 1 Ml Vial IV Q2M PRN Opioid Reversal Pantoprazole Sodium 40 mg 03/24/22 09:00 03/25/22 09:37 Pantoprazole 40 Mg Tablet PO 40 mg [id number] ZORA Administration Pravastatin Sodium 80 mg 03/24/22 21:00 03/24/22 08:58 Pravastatin Sodium 80 Mg Tab PO 80 mg HS ZORA Administration Senna/Docusate Sodium 2 each 03/23/22 12:07 Sennosides-Docusate Sodium 1 Each Tab PO DAILY PRN Constipation Objective - Vital Signs Vital signs: Vital Signs Temp 99.0 F 03/25/22 17:00 Pulse 107 H 03/25/22 17:00 Resp 13 03/25/22 17:00 BP 139/85 03/25/22 17:00 Pulse Ox 92 L 03/25/22 17:00 FiO2 Intake & Output 03/24/22 03/25/22 03/25/22 18:59 06:59 18:59 Intake Total 1260 900 725 Output Total 785 1295 1140 Balance 475 395 -415 Weight 81.3 kg Intake: IV 900 900 365 Sodium Chloride 0.9% 1, 900 900 365 000 ml @ 75 mls/hr IV . [id number] [facility] Rx#:[id number] Oral 360 360 Output: Drainage 60 10 Right Neck 60 10 Urine 725 1285 1140 Other: Voiding Method Indwelling Catheter Indwelling Catheter Indwelling Catheter ABP, PAP, CO, CI - Last Documented Arterial Blood Pressure 09/14 - Labs CBC & Chem 7: 03/25/22 05:23 03/25/22 05:23 Labs: Abnormal Lab Results - Last 24 Hours (Table) 03/25/22 03/25/22 03/25/22 Range/Units 05:23 05:23 11:02 WBC 16.8 H (3.8-10.6) k/uL Sodium 135 L (137-145) mmol/L Creatinine 0.42 L (0.52-1.04) mg/dL Glucose 132 H (74-99) mg/dL Ur Leukocyte Esterase Moderate H (Negative) Urine Bacteria Rare H (None) /hpf
[2022-03-25] MEDS: PRAVASTATIN SODIUM 80 MG TAB PO SCH (20:56)
[2022-03-26] MEDS: ACETAMINOPHEN TAB 325 MG TAB PO SCH ×3 (06:33→17:32)
[2022-03-26] MEDS: PANTOPRAZOLE 40 MG TABLET PO SCH (06:33)
[2022-03-26] MEDS: amLODIPine 10 MG TAB PO SCH (08:46)
[2022-03-26] MEDS: FAMOTIDINE 20 MG TAB PO SCH (08:46)
[2022-03-26] MEDS: FENOFIBRATE 160 MG TAB PO SCH (08:46)
--- NOTE | 2022-03-26 09:31 | P.PN ---
Subjective Progress Note Date: 03/26/22 83-year-old female, who presented to the emergency room on March 22, after getting out of bed earlier, and apparently tripping and falling, while going to the restroom. She apparently complained of neck pain posteriorly. Is not clear whether or not there was loss of consciousness. She apparently did have a laceration to the left lower lip, which occurred during the fall, and a bruise and swelling to the right hand. MRI of the spine, showed an acute C4 fracture, with prevertebral soft tissue edema without retropulsion or abnormality of the cervical cord. The patient underwent a C2 to T2 decompression and fusion today by Dr. Chisholm, and the patient is brought into the intensive care unit for further monitoring and management. Currently, she has a cervical collar in place, is on 4 L of oxygen, and receiving lactated Ringer's at 75 mL an hour. White count 14.9, hemoglobin 15, hematocrit 44.9, and platelet count is 311,000. Coags are normal. Sodium 134, potassium 4.1, chlorides 99, CO2 23, anion gap is 12, BUN is 13, and creatinine 0.5. Glucose 153. Urinalysis is negative. Head CT is negative. Right knee x-ray is negative. CT of the chest abdomen and pelvis shows changes of ankylosing spondylitis in the thoracic and lumbar spine. On 03/24/2022, the patient is being seen for a follow-up. The patient is post multilevel decompression and fusion involving the cervical spine. The patient was activated successfully. She is doing well. She still wearing a hard neck collar. She is able to move all 4 extremities without any limitation. Her pain is under adequate control pitches and oxygen at 2 L and her current pulse ox 96%. Cardiac rhythm is sinus. No chest pain. Car catheter in place. The patient is producing adequate amount of urine output. Linden is a 40 with a creatinine of 0.4. The white cell causes 14.2 with a hemoglobin 12.5 and a platelet count of 235. UA is negative for now. The patient has been communicating. The patient has no specific complaint otherwise for now. She is on Dilaudid for pain control. Her home medications and resume. In terms of DVT prophylaxis, the patient has compression devices. The patient underwent a follow-up C-spine CAT scan today and the patient was found to have postsurgical changes and cervical fusion involving C2 through T1 along with some soft tissue edema and some gas related to recent surgery. There was redemonstration of the acute/subacute C4 fracture that was also seen on a CAT scan of the day neck from 03/22/2022. 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 IV fluids as in the form of normal saline at rate of 75 mL an hour. 03/25/2022, the patient is awake and alert and she is 104 extremities. Her pain is under adequate control for now. The patient had a fall and she had a C4 spine fracture and she underwent multilevel cervical fusion and stabilization of the cervical spine. She is still wearing a hard neck collar. Car catheter is in place. Adequate urine output. CAT scan of the neck that was done postop was noted and is essentially showing postsurgical changes. The white cell count at 16.8 with hemoglobin 12.5. Electrolytes are all stable. Renal function stable with a creatinine of 0.9. The patient has compression devices on the lower extremities and she will also be started on Lovenox if clearance was given by the spine surgeon. She is tolerating diet. Nausea. No emesis. No altered mentation. No other significant events. She has a MATIAS drain in her neck area without any significant outputs. I noted a low-grade temperature of 100.1 03/26/2022, the patient is doing well. No specific complaints. She is still recovering from her surgery. She is wearing a neck collar. The MATIAS drain was ordered removed. No new labs from today. No issues with pain. Moving all 4 extremities. She was able to sit up on a chair yesterday. She has not ambulated yet. No nausea. No emesis. No chest pain. No altered mentation. Objective - Vital Signs Vital signs: Vital Signs Temp 98.7 F 03/26/22 00:00 Pulse 91 03/26/22 04:00 Resp 11 L 03/26/22 04:00 BP 134/86 03/26/22 04:00 Pulse Ox 96 03/26/22 07:50 FiO2 21 03/26/22 07:50 Intake & Output 03/25/22 03/26/22 03/26/22 18:59 06:59 18:59 Intake Total 725 220 Output Total 1140 870 Balance -415 -650 Intake: IV 365 220 Sodium Chloride 0.9% 1, 365 220 000 ml @ 75 mls/hr IV . [id number] [facility] Rx#:[id number] Oral 360 Output: Urine 1140 870 Other: Voiding Method Indwelling Catheter Indwelling Catheter # Voids 1 ABP, PAP, CO, CI - Last Documented Arterial Blood Pressure 09/14 - Exam No acute distress, sedated, from the effects of the anesthetic, in no acute distress, no respiratory distress, currently on 2 L. HEENT examination is grossly unremarkable. Neck is in a cervical collar. Cardiovascular examination reveals regular rhythm rate. S1-S2 normal. No S3 or S4. No discernible murmur noted. Lungs reveal clear breath sounds. Breath sounds are equal bilaterally. No adventitious lung sounds including wheezes rhonchi or crackles. Abdomen soft, without bowel sounds. No masses. Extremities are intact. No cyanosis clubbing or edema. Skin is without rash or lesion. Neurologic examination is difficult to evaluate given her level of sedation. - Labs CBC & Chem 7: 03/25/22 05:23 03/25/22 05:23 Labs: Abnormal Lab Results - Last 24 Hours (Table) 03/25/22 Range/Units 11:02 Ur Leukocyte Esterase Moderate H (Negative) Urine Bacteria Rare H (None) /hpf Assessment and Plan Plan: Postop day #3, status post C2-T2 decompression and fusion, secondary to an acute C4 fracture, from a fall.follow-up CAT scan of the neck showed postsurgical changes. Surgery was done for a C4 fracture following a fall.. Neurologically, the patient is intact and the patient is moving 4 extremities.MATIAS drain in her neck with minimal amount of output and the patient has had a CAT scan of the neck this is showing essentially stable postsurgical changes. No hoarseness. No difficulties with swallowing. Pain is under adequate control for now. The patient wanted all 4 extremities. Fall with trauma to the face and areas of bruising in her extremities. No fractures other than the C4 spine fracture. History of hyperlipidemia. History of hypertension. History of gastroesophageal reflux disease. History of overactive bladder. Prior history of cataract surgery. Plan: afebrile Room air oxygen Chest x-ray from yesterday showed no acute abnormalities MATIAS drain has been removed White cell count is not elevated Physical therapy Increase mobility. We'll continue to follow patient is able to leave the ICU today. obtain an Okay from spine surgery regarding Itzx
--- NOTE | 2022-03-26 10:39 | P.PN ---
Subjective Progress Note Date: 03/26/22 Principal diagnosis: 1. C4 AO Type B3 extension fracture, unstable, Neuro intact 2. Facial trauma, BHT 3. s/p ffs Patient seen at bedside this morning lying in semirecumbent position with c- collar on. drain removed yesterday and dressing changed yesterday. Patient does respond questions during encounter, however, patient appears somewhat groggy and fatigued. Patient says she does have some neck pain at this time. Patient is wondering when she will be able to go home. Patient says she did get up with therapy yesterday and nurse at bedside and was able to sit in the chair. Patient denies chest pain, fever, shortness of breath, nausea, vomiting, change in vision. Patient denies any numbness/tingling in the bilateral upper and lower extremities. Patient denies any saddle anesthesia. Objective - Vital Signs Vital signs: Vital Signs Temp 98.7 F 03/26/22 00:00 Pulse 91 03/26/22 04:00 Resp 11 L 03/26/22 04:00 BP 134/86 03/26/22 04:00 Pulse Ox 96 03/26/22 07:50 FiO2 21 03/26/22 07:50 Intake & Output 03/25/22 03/26/22 03/26/22 18:59 06:59 18:59 Intake Total 725 220 Output Total 1140 870 Balance -415 -650 Intake: IV 365 220 Sodium Chloride 0.9% 1, 365 220 000 ml @ 75 mls/hr IV . [id number] [facility] Rx#:[id number] Oral 360 Output: Urine 1140 870 Other: Voiding Method Indwelling Catheter Indwelling Catheter # Voids 1 ABP, PAP, CO, CI - Last Documented Arterial Blood Pressure 09/14 - Exam Hard cervical collar is present on patient. Surgical drain is in place with surgical dressing. Drain was removed and drained sponge and Tegaderm was placed over drain incision. Surgical dressing was removed and new optifoam dressing was placed over incision. Incision appears to be healing well at this time. Jaya are well aligned. There was some serous drainage present from drain incision when drain was removed. Patient does have some mild tenderness to palpation along incision on cervical spine. Patient is nontender to palpation throughout rest exam. Sensation is equal, symmetric, bilaterally intact throughout the upper and lower extremity. Patient does have full range of motion bilateral upper and lower extremities on exam. 4+/5 in all major motor groups in the bilateral upper and lower extremities on exam. Radial pulse intact, 2+ bilateral. Cap refill under 3 seconds in digits of upper extremities. Negative Homans bilaterally. Negative clonus bilaterally. - Labs CBC & Chem 7: 03/25/22 05:23 03/25/22 05:23 Labs: Abnormal Lab Results - Last 24 Hours (Table) 03/25/22 Range/Units 11:02 Ur Leukocyte Esterase Moderate H (Negative) Urine Bacteria Rare H (None) /hpf Assessment and Plan Assessment: 1. C4 AO Type B3 extension fracture, unstable, - post-op day #3 Status post open treatment C4 AO type BIII extension injury; posterior lateral attachment fusion C2-C1; bilateral laminectomy, foraminotomy C2-C7 Plan: 1. C4 AO Type B3 extension fracture, unstable, Neuro intact; Facial trauma, BHT - surgery performed 03/23/2022 - open treatment C4 AO type BIII extension injury; posterior lateral attachment fusion C2-C1; bilateral laminectomy, foraminotomy C2-C7 Patient stable at bedside this morning with hard cervical collar on. Drain was removed yesterday and optifoam dressing was p laced over incision. Incision appears to be healing well at this time. Plan is for patient to go to [facility]. We will continue to follow patient during her stay in hospital. 2. appreciate medical management 3. Pain management - [place]; Flexeril; IV pain meds only as necessary 4. GI prophylaxis - Pepcid; Protonix; senna 5. DVT prophylaxis - mechanical 6. PT/OT - weightbearing as tolerated with walker and c-collar on at all times 7. Encourage incentive spirometer use 8. Discharge planning - plan for [facility], , 03/26/2022 Time with Patient: Less than 30
[2022-03-26] MEDS: LACTATED RINGERS 1,000 ML IV SCH (12:11)
[2022-03-26] MEDS: HYDROcodone/APAP 10-325MG 1 EACH TAB PO PRN (15:18)
--- NOTE | 2022-03-26 16:24 | P.PN ---
Subjective Progress Note Date: 03/26/22 (delayed charting seen at 0945) Patient is an 82-year-old lady with a past medical history of hypertension, dyslipidemia, and GERD who presented to the ER after a fall.She was found to have a C4 cervical fracture. Patient seen and examined at bedside. Doing well. Was up to chair today. No nausea, eating and drinking well. General: nontoxic, no distress, appears at stated age Derm: warm, dry Head: hard cervical collar in place, bruising on her chin with laceration to bottom lip on the left- improving Eyes: EOMI, no lid lag, anicteric sclera Mouth: no lip lesion, mucus membranes dry Cardiovascular: S1S2 reg, no murmur, positive posterior tibial pulse bilateral, Lungs: Decreased bs bilateral, no rhonchi, no rales , no accessory muscle use Abdominal: soft, nontender to palpation, no guarding, no appreciable organomegaly Ext: no gross muscle atrophy, no edema, no contractures Neuro: CN II-XI grossly intact, no focal neuro deficits Psych: Alert, oriented, appropriate affect Assessment/plan: 82-year-old female status post fall with C4 fracture. Fracture management by orthopedic team. Hypertension - follow BP - norvasc Hyperlipidemia - statin - fenofibrate Leukocytosis -Likely reactive -Stable -Follow CBC GERD -PPI and H2 elliot Chronic anemia, improved -Stop IV fluids C4 cervical fracture -Management per orthopedic surgery team Tachycardia, resolved DVT prophylaxis: per ortho Discussed with: patient, nursing Anticipated discharge: per ortho Anticipated discharge place: per ortho A total of 35 minutes was spent on the care of this complex patient more than 50% of the time was spent in counseling and care coordination. Active Medications Generic Name Dose Route Start Last Admin Trade Name Freq PRN Reason Stop Dose Admin Acetaminophen 650 mg 03/23/22 18:00 03/26/22 12:05 Acetaminophen Tab 325 Mg Tab PO 650 mg Q6HR ZORA Administration Hydrocodone Bitart/Acetaminophen 1 each 03/23/22 12:07 03/25/22 23:21 Hydrocodone/Apap 5-325mg 1 Each Tab PO 1 each Q6HR PRN Administration Pain Scale 4 - 6 Hydrocodone Bitart/Acetaminophen 1 each 03/23/22 12:07 03/26/22 15:18 Hydrocodone/Apap 10-325mg 1 Each Tab PO 1 each Q6H PRN Administration Pain Scale 7 - 10 Amlodipine Besylate 10 mg 03/22/22 14:15 03/26/22 08:46 Amlodipine 10 Mg Tab PO 10 mg DAILY ZORA Administration Cyclobenzaprine HCl 5 mg 03/23/22 12:07 Cyclobenzaprine 5 Mg Tab PO TID PRN Muscle Spasm Famotidine 40 mg 03/22/22 14:15 03/26/22 08:46 Famotidine 20 Mg Tab PO 40 mg DAILY ZORA Administration Fenofibrate 160 mg 03/23/22 09:00 03/26/22 08:46 Fenofibrate 160 Mg Tab PO 160 mg DAILY ZORA Administration Hydromorphone HCl 0.5 mg 03/23/22 12:07 03/23/22 20:56 Hydromorphone 0.5 Mg/0.5 Ml Syringe IVP 0.5 mg Q3HR PRN Administration Pain Scale 4 - 6 Hydromorphone HCl 1 mg 03/23/22 12:07 03/23/22 15:53 Hydromorphone 1 Mg/Ml 1 Ml Syringe IVP 1 mg Q3HR PRN Administration Pain Scale of 7 - 10 Lactated Ringer's 1,000 mls @ 20 mls/hr 03/23/22 12:29 03/26/22 12:11 Lactated Ringers IV 20 mls/hr .Q24H ZORA Administration Lidocaine HCl 0.1 ml 03/23/22 12:29 Lidocaine 1% (10mg/Ml) For Iv Start INTRADERMA PER PROTOCOL PRN IV Start Morphine Sulfate 4 mg 03/22/22 12:03 03/23/22 06:29 Morphine Sulfate 4 Mg/Ml Syringe IV 4 mg Q4HR PRN Administration Severe Pain (Scale 7 to 10) Naloxone HCl 0.2 mg 03/22/22 11:42 Naloxone 0.4 Mg/Ml 1 Ml Vial IV Q2M PRN Opioid Reversal Pantoprazole Sodium 40 mg 03/24/22 09:00 03/26/22 06:33 Pantoprazole 40 Mg Tablet PO 40 mg [id number] ZORA Administration Pravastatin Sodium 80 mg 03/24/22 21:00 03/25/22 20:56 Pravastatin Sodium 80 Mg Tab PO 80 mg HS ZORA Administration Senna/Docusate Sodium 2 each 03/23/22 12:07 Sennosides-Docusate Sodium 1 Each Tab PO DAILY PRN Constipation Objective - Vital Signs Vital signs: Vital Signs Temp 98.5 F 03/26/22 13:40 Pulse 96 03/26/22 14:00 Resp 16 03/26/22 14:00 BP 127/80 03/26/22 14:00 Pulse Ox 95 03/26/22 14:00 FiO2 21 03/26/22 07:50 Intake & Output 03/25/22 03/26/22 03/26/22 18:59 06:59 18:59 Intake Total 725 220 Output Total 1140 870 Balance -415 -650 Intake: IV 365 220 Sodium Chloride 0.9% 1, 365 220 000 ml @ 75 mls/hr IV . [id number] [facility] Rx#:[id number] Oral 360 Output: Urine 1140 870 Other: Voiding Method Indwelling Catheter Indwelling Catheter # Voids 1 ABP, PAP, CO, CI - Last Documented Arterial Blood Pressure 09/14 - Labs CBC & Chem 7: 03/25/22 05:23 03/25/22 05:23
[2022-03-26 20:20] VITALS: RESP 16; TEMP 98.2
[2022-03-26] MEDS: PRAVASTATIN SODIUM 80 MG TAB PO SCH (21:37)
[2022-03-26] MEDS: HYDROcodone/APAP 5-325MG 1 EACH TAB PO PRN (21:37)
[2022-03-27] MEDS: ACETAMINOPHEN TAB 325 MG TAB PO SCH ×3 (00:38→11:40)
[2022-03-27 05:40] VITALS: BP 161/83; PULSE 89
[2022-03-27] MEDS: PANTOPRAZOLE 40 MG TABLET PO SCH (08:21)
[2022-03-27] MEDS: FENOFIBRATE 160 MG TAB PO SCH (08:21)
[2022-03-27] MEDS: FAMOTIDINE 20 MG TAB PO SCH (08:21)
[2022-03-27] MEDS: amLODIPine 10 MG TAB PO SCH (08:29)
[2022-03-27] MEDS: HYDROcodone/APAP 10-325MG 1 EACH TAB PO PRN (08:29)
[2022-03-27 09:33] LABS: HGB 13.3 g/dL (12.0-15.0); MCH 28.5 pg (27.0-32.0); MCHC 33.3 g/dL (32.0-37.0); MCV 85.8 fL (80.0-97.0); Mean Platelet Volume 9.2 fL (9.5-12.2); NRBC Per 100 WBC 0 /100 WBCS (0.0-0.0); Platelet Count 345 X 10*3/uL (140-440); RBC 4.66 X 10*6/uL (4.10-5.20); RDW 13.5 % (11.5-14.5); WBC 11.46 X 10*3/uL (4.50-10.00)
--- NOTE | 2022-03-27 09:43 | P.DS ---
Providers Date of admission: 03/22/22 12:25 Expected date of discharge: 03/26/22 Attending physician: Amos Chisholm DO Consults: 03/22/22 12:03 Consult Physician Routine Consulting Provider: Radha Galeano Consult Reason/Comments: Medical management Do you want consulting provider notified?: Yes Consult Physician Urgent Consulting Provider: Alexis Wilson Consult Reason/Comments: Fall Do you want consulting provider notified?: Already Contacted 03/23/22 14:50 Consult Physician Routine Consulting Provider: Alexis Bull Consult Reason/Comments: ICU management Do you want consulting provider notified?: Already Contacted Primary care physician: Aletha Dee Hospital Course: Date of admission: 03/22/2022 Date of discharge: 03/27/2022 Admission diagnosis: C4 AO Type B3 extension fracture, unstable Discharge diagnosis: Same Attending physician: Dr. Chisholm Surgical procedures: open treatment C4 AO type BIII extension injury; posterior lateral fusion C2-C1; bilateral laminectomy, foraminotomy C2-C7 Brief history: Patient is a 82-year-old female with a history of C4 AO type BIII extension fracture, unstable . At this point patient has failed conservative treatment measures and has opted to proceed with a elective open treatment C4 AO type BIII extension injury; posterior lateral fusion; bilateral laminectomy, foraminotomy C2-C7. Hospital course: Details of patient's surgery can be found in operative report. Patient tolerated the procedure well and was subsequently transported to orthopedic floor. Patient's orthopeidc and medical care was provided daily. Patient had daily laboratory tests performed for evaluation of overall blood counts. Patient had daily physical therapy to include strengthening range of motion as well as education with walker ambulation. Patient was noted to have a relatively uneventful postoperative course. Patient reported satisfactory pain control with oral pain medications by postoperative day 4. Patient showed satisfactory progress with physical therapy. Patient moved steadily through the program and had no difficulty meeting the goals by postoperative day 4. Given patient's otherwise satisfactory course and having met physical therapy goals, plan is to discharge patient to rehab on postoperative day 4. Discharge condition/disposition: Patient will be discharged to rehab in stable condition. Discharge medications: Instructions are given on resumption of patient's normal daily medications per primary care recommendation, in addition patient will be prescribed [place] 7.5 [place] 25 mg; Flexeril; Duricef; senna. Spine Discharge and Recovery Instructions Date of Surgery: 03/23/2022 Diagnosis: C4 AO Type B3 extension fracture, unstable Procedure: open treatment C4 AO type BIII extension injury; posterior lateral attachment fusion C2-C1; bilateral laminectomy, foraminotomy C2-C7 Medications: See medication list All medication refills should be obtained through your primary care doctor or your clinic spine surgeon. Please discuss prescription refills at your follow up appointment. Do not call the hospital for medication refills. Dressing: Leave your dressing in place for a total of 5 days post operatively. Then you may remove your dressing and leave open to air. Keep the area clean and if not able to keep area clean, then cover with sterile gauze and tape. Showering: You may shower 3 days after your procedure allowing soap and water to run over incision. Do not scrub. Do not soak. Blot dry. Follow up: Please confirm a follow up appointment with your surgeon 3 weeks post operatively. Please make an appointment to follow up with your PCP in 1-2 weeks after surgery for evaluation 3 phase, 3-week plan POST OP WEEKS 1-3 1. Lifting/carrying/pushing/pulling limited to less than 5 pounds. 2. Do not sit for longer than 15 minutes at one time. Get up and walk around. Prolonged sitting is NOT advised. If you lay down, see if you can tolerate laying down on you front (belly side) 3. Walk for periods of 15 minutes = 1 mile but no longer; do it multiple times times each day. 4. Ice your low back after activity. POST OP WEEKS 3-6 1. Lifting limited to less than 20 pounds. 2. Do not sit for longer than 30 minutes at a time. Frequently change positions. Use a sit-to stand workstation or take frequent breaks from sitting if you have returned to work. 3. Walk for 30 minutes each day. If possible, do these three or more times a day POST OP WEEKS 6+ At your 6-week appointment we will give you a physical therapy referral to focus on a core stabilization and strengthening program. You should also work on leg & buttock strengthening, hamstring & quadriceps stretching, and continue a low impact aerobic activity program such as swimming, walking, or riding a [place] bicycle. During the initial 6 weeks after your surgery, you are at the highest risk of re-injuring your spine. You should generally avoid BLTs (bending, lifting and twisting combination motions) and follow the above guidelines to reduce the chance of reinjury. You can anticipate post op appointments in our office at approximately 3 weeks and 6 weeks after your surgery. INCISION CARE: If your incision is not draining you do NOT need to cover it with a dressing. Keep your incision clean, dry and intact. In most cases, we apply skin glue, francia or sutures to the incision at the time of surgery. This will be like a crust or have the appearance of a scab and will fall off in time on its own. The stitches or francia need to be removed at 3 weeks post op appointment. You may begin to shower 3 days after surgery (this allows the glue to funez well). However, please avoid scrubbing the incision site or peeling off any of the skin glue. This will ensure optimal healing of your incision. Also, during this time avoid soaking the incision area in water - this includes swimming pools, hot tubs or baths. No ointments, lotions or oils on the incision until your surgeon allows. Leave francia, sutures or glue in place. Neurological dysfunction that comes on suddenly can also be a sign of a stroke. Below some common symptoms of a stroke are listed: B - balance difficulty such as sudden onset walking or leaning to one side - NEW E - eye problem such as sudden double vision or trouble seeing on one side - NEW F - Facial weakness or numbness on one side - NEW A - Arm or leg weakness or numbness on one side - NEW S - Slurred speech or difficulty with word finding - NEW T - Time is BRAIN! Call 911 as soon as you recognize these symptoms Diet: Consume a regular diet rich in vegetables and lean protein such as chicken or fish. You should consume in a ratio of approximately 20% fats|40% carboh ydrates|40%protein. Vegetables, sweet potatoes, brown rice or quinoa are examples of good carbohydrates. Chips, white bread, cookies and sweets/sugar are examples of bad carbohydrates. Limit your bad carbs, go wild with good carbs. "Life's Simple 7" Guidelines as per [place] [employer] These will help you reclaim your life after surgery and bartender helper in your recovery, keeping in mind your restrictions. (1) Get Active. Physical activity can help people lose weight, control high blood pressure and cholesterol, feel emotionally better, and sleep better. (2) Control Cholesterol. Avoid a diet high in saturated fat, trans fat, & cholesterol. Limit whole milk & cream, ice cream, butter, egg yolks, processed meats (like sausage and hot dogs), and fatty meats. Choose healthy foods that are low in saturated fat, trans fat and cholesterol which include: Fruits and vegetables, fiber rich grain products (like whole grain pasta and brown rice), lean meat such as chicken, fish, nuts, seeds, and legumes. (3) Eat Better. Eat small portions. Shop at the grocery with a list and do not stray from it. Tips for a healthy diet include: Limit sodium intake to less than 1500mg daily, avoid prepackaged, processed, and fast foods, choose a diet rich in fruits, vegetables, and whole grain, high fiber foods, and limit saturated & cholesterol in your diet. (4) Manage Blood Pressure. If you have high blood pressure, you should have a cuff at home so that you can check your blood pressure regularly. Be sure you have a good cuff. An arm one is generally better than a wrist one. Bring the cuff to a doctor's appointment to validate that the measurements that your cuff are taking are accurate. Take your blood pressure twice daily when you are sitting down and relaxing. Record the numbers in a log and bring this log with you to your doctors' appointments. (5) Lose Weight if your BMI is above 25. A healthy BMI is between 19-25. To calculate Your BMI, you may use a Standard BMI Calculator on the NIH BMI website: <www.nhlbi.nih.gov/guidelines/obesity/BMI/bmicalc.htm>. Weigh oneself daily. If you are overweight, set a goal to lose weight. A pound a week loss if needed is a good target. (6) Reduce Blood Sugar. Limit foods and liquids with "added sugars." (Added sugars include sucrose, fructose, glucose, maltose, dextrose, high fructose corn syrup, corn syrup, concentrated fruit juice and honey). (7) Stop Smoking. If you smoke, quitting smoking is one of the best things that you can do for your health. Smoking increases your risk of heart attack, stroke, and peripheral vascular disease, which is a build-up of plaque in your arteries. Please discard all the cigarettes and lighters in your house. Have a plan for what you will do when you have the urge to smoke. Direct and second- hand smoke shortens your life as well as the lives of your family, friends and others around you. For your health and the health of those around you, please consider quitting! Proper Bending Body Mechanics: Maintain a wide stance with one foot slightly in front of the other. Keep your back straight. Bend utilizing the strength in your hips and knees. Do not bend at the waist. Maintain the lifted object at your waist-level close to your body. Avoid lifting weight that causes immediately pain or pain anywhere in the body afterwards. Smoking/Nicotine If there was ever one thing that you could do to increase your overall health, decrease your risk of cardiovascular problems by about 39% the second you make the choice, it is to STOP SMOKING. Your body's most instant gratification is the second you stop smoking. We have all heard the studies, read the articles but it is true, smoking is extremely bad for your overall health, and moreover it is detrimental to your bone health. Nicotine, IN ANY FORM, kills bone cells, prevents your body from healing fract ures, and significantly prolongs healing after surgery. In spine surgery specifically, it increases your risk of not healing your bones to create a fusion and increases your risk of having a revision surgery due to this up to 60%. I know it is hard. I know it feels impossible. But there are ways. Take control of your life. We are here to help you through it. And when you are ready, ask us and we can direct you to help if you desire. Use the START Plan to Quit Smoking (please visit the Helpguide.org website listed below for more information): S = Set a quit date. Choose a date within the next 2 weeks, so you have enough time to prepare without losing your motivation to quit. If you mainly smoke at work, quit on the weekend, so you have a few days to adjust to the change. T = Tell family, friends, and co-workers that you plan to quit. Let your friends and family in on your plan to quit smoking and tell them you need their support and encouragement to stop. Look for a quit bonnie who wants to stop smoking as well. You can help each other get through the rough times. A = Anticipate and plan for the challenges you'll face while quitting. Most people who begin smoking again do so within the first 3 months. You can help yourself make it through by preparing ahead for common challenges, such as nicotine withdrawal and cigarette cravings. R = Remove cigarettes and other tobacco products from your home, car, and work. Throw away all your cigarettes (no emergency pack!), lighters, ashtrays, and matches. Wash your clothes and freshen up anything that smells like smoke. Shampoo your car, clean your drapes and carpet, and steam your furniture. T = Talk to your doctor about getting help to quit. Your doctor can prescribe medication to help with withdrawal and suggest other alternatives. If you can't see a doctor, you can get many products over the counter at your local pharmacy or grocery store, including the nicotine patch, nicotine lozenges, and nicotine gum. Resources for Quitting Smoking: <https://www.[place].gov/documents/[facility]/Quit_Tobacco_Resources_for_patients_313 480_7.pdf> Supplementation: Take recommended dosages of Vitamin D and Calcium to help fortify your bones and help them to heal. See your health maintenance packet for dosages and recommended levels. DVT/VTE prophylaxis: You will be given compression stockings from the hospital. Wear these daily for the first two weeks after surgery. You may take them off at night. You may be prescribed a medication to help thin your blood. Take this as directed. If you are not prescribed this medication, early and frequent ambulation has been shown to be the best prophylaxis to deep vein thrombosis and sequelae related to this event. Assessment: C4 AO Type B3 extension fracture, unstable, Procedures: open treatment C4 AO type BIII extension injury; posterior lateral attachment fusion C2-C1; bilateral laminectomy, foraminotomy C2-C7 Patient Condition at Discharge: Good Plan - Discharge Summary Discharge Rx Participant: No New Discharge Prescriptions: New cefaDROXiL [Duricef] 500 mg PO Q12HR 5 Days #10 cap Fenofibrate [Lofibra] 160 mg PO DAILY tab HYDROcodone/APAP 7.5-325MG [[place] 7.5] 1 each PO Q6HR PRN #24 tab PRN Reason: Pain Cyclobenzaprine [Flexeril] 5 mg PO HS #14 tab Sennosides/Docusate Sodium [Senna Plus 8.6-50 mg Tablet] 1 each PO DAILY #20 tablet Continue Pravastatin Sodium [Pravachol] 80 mg PO HS Omeprazole [PriLOSEC] 20 mg PO BID amLODIPine [Norvasc] 10 mg PO DAILY Famotidine 40 mg PO DAILY Latanoprost [Latanoprost 0.005%] 1 drop BOTH EYES HS No Action Aspirin 81 mg PO DAILY Discharge Medication List Aspirin 81 mg PO DAILY 11/15/13 [History] Omeprazole [PriLOSEC] 20 mg PO BID 11/15/13 [History] Pravastatin Sodium [Pravachol] 80 mg PO HS 11/15/13 [History] amLODIPine [Norvasc] 10 mg PO DAILY 11/15/13 [History] Famotidine 40 mg PO DAILY 05/17/17 [History] Latanoprost [Latanoprost 0.005%] 1 drop BOTH EYES HS 03/22/22 [History] Fenofibrate [Lofibra] 160 mg PO DAILY tab 03/26/22 [Rx] Cyclobenzaprine [Flexeril] 5 mg PO HS #14 tab 03/27/22 [Rx] HYDROcodone/APAP 7.5-325MG [[place] 7.5] 1 each PO Q6HR PRN #24 tab 03/27/22 [Rx] Sennosides/Docusate Sodium [Senna Plus 8.6-50 mg Tablet] 1 each PO DAILY #20 tablet 03/27/22 [Rx] cefaDROXiL [Duricef] 500 mg PO Q12HR 5 Days #10 cap 03/27/22 [Rx] Follow up Appointment(s)/Referral(s): Leila Pompa MD [Primary Care Provider] - 1-2 days Amos Chisholm DO [Doctor of Osteopathic Medicine] - 2 Weeks Patient Instructions/Handouts: Cervical Fracture (ED), Cervical Fracture (DC), Cervical Fracture (GEN), [place] J Collar (DC), [place] J Collar (GEN) Activity/Diet/Wound Care/Special Instructions: Thrombophelibitis of right anticubital area. PLease apply warm compresses 4 times daily for 3 days. Silver foam dressing may be removed on 03/30/2022. Spine Discharge and Recovery Instructions Date of Surgery: 03/23/2022 Diagnosis: C4 AO Type B3 extension fracture, unstable Procedure: open treatment C4 AO type BIII extension injury; posterior lateral attachment fusion C2-C1; bilateral laminectomy, foraminotomy C2-C7 Medications: See medication list All medication refills should be obtained through your primary care doctor or your clinic spine surgeon. Please discuss prescription refills at your follow up appointment. Do not call the hospital for medication refills. Dressing: Leave your dressing in place for a total of 5 days post operatively. Then you may remove your dressing and leave open to air. Keep the area clean and if not able to keep area clean, then cover with sterile gauze and tape. Showering: You may shower 3 days after your procedure allowing soap and water to run over incision. Do not scrub. Do not soak. Blot dry. Follow up: Please confirm a follow up appointment with your surgeon 3 weeks post operatively. Please make an appointment to follow up with your PCP in 1-2 weeks after surgery for evaluation 3 phase, 3-week plan POST OP WEEKS 1-3 1. Lifting/carrying/pushing/pulling limited to less than 5 pounds. 2. Do not sit for longer than 15 minutes at one time. Get up and walk around. Prolonged sitting is NOT advised. If you lay down, see if you can tolerate laying down on you front (belly side) 3. Walk for periods of 15 minutes = 1 mile but no longer; do it multiple times times each day. 4. Ice your low back after activity. POST OP WEEKS 3-6 1. Lifting limited to less than 20 pounds. 2. Do not sit for longer than 30 minutes at a time. Frequently change positions. Use a sit-to stand workstation or take frequent breaks from sitting if you have returned to work. 3. Walk for 30 minutes each day. If possible, do these three or more times a day POST OP WEEKS 6+ At your 6-week appointment we will give you a physical therapy referral to focus on a core stabilization and strengthening program. You should also work on leg & buttock strengthening, hamstring & quadriceps stretching, and continue a low impact aerobic activity program such as swimming, walking, or riding a stationary bicycle. During the initial 6 weeks after your surgery, you are at the highest risk of re-injuring your spine. You should generally avoid BLTs (bending, lifting and twisting combination motions) and follow the above guidelines to reduce the chance of reinjury. You can anticipate post op appointments in our office at approximately 3 weeks and 6 weeks after your surgery. INCISION CARE: If your incision is not draining you do NOT need to cover it with a dressing. Keep your incision clean, dry and intact. In most cases, we apply skin glue, francia or sutures to the incision at the time of surgery. This will be like a crust or have the appearance of a scab and will fall off in time on its own. The stitches or francia need to be removed at 3 weeks post op appointment. You may begin to shower 3 days after surgery (this allows the glue to funez well). However, please avoid scrubbing the incision site or peeling off any of the skin glue. This will ensure optimal healing of your incision. Also, during this time avoid soaking the incision area in water - this includes swimming pools, hot tubs or baths. No ointments, lotions or oils on the incision until your surgeon allows. Leave francia, sutures or glue in place. Neurological dysfunction that comes on suddenly can also be a sign of a stroke. Below some common symptoms of a stroke are listed: B - balance difficulty such as sudden onset walking or leaning to one side - NEW E - eye problem such as sudden double vision or trouble seeing on one side - NEW F - Facial weakness or numbness on one side - NEW A - Arm or leg weakness or numbness on one side - NEW S - Slurred speech or difficulty with word finding - NEW T - Time is BRAIN! Call 911 as soon as you recognize these symptoms Diet: Consume a regular diet rich in vegetables and lean protein such as chicken or fish. You should consume in a ratio of approximately 20% fats|40% carbohydrates|40%protein. Vegetables, sweet potatoes, brown rice or quinoa are examples of good carbohydrates. Chips, white bread, cookies and sweets/sugar are examples of bad carbohydrates. Limit your bad carbs, go wild with good carbs. "Life's Simple 7" Guidelines as per [place] [employer] These will help you reclaim your life after surgery and bartender helper in your recovery, keeping in mind your restrictions. (1) Get Active. Physical activity can help people lose weight, control high blood pressure and cholesterol, feel emotionally better, and sleep better. (2) Control Cholesterol. Avoid a diet high in saturated fat, trans fat, & cholesterol. Limit whole milk & cream, ice cream, butter, egg yolks, processed meats (like sausage and hot dogs), and fatty meats. Choose healthy foods that are low in saturated fat, trans fat and cholesterol which include: Fruits and vegetables, fiber rich grain products (like whole grain pasta and brown rice), lean meat such as chicken, fish, nuts, seeds, and legumes. (3) Eat Better. Eat small portions. Shop at the grocery with a list and do not stray from it. Tips for a healthy diet include: Limit sodium intake to less than 1500mg daily, avoid prepackaged, processed, and fast foods, choose a diet rich in fruits, vegetables, and whole grain, high fiber foods, and limit saturated & cholesterol in your diet. (4) Manage Blood Pressure. If you have high blood pressure, you should have a cuff at home so that you can check your blood pressure regularly. Be sure you have a good cuff. An arm one is generally better than a wrist one. Bring the cuff to a doctor's appointment to validate that the measurements that your cuff are taking are accurate. Take your blood pressure twice daily when you are sitting down and relaxing. Record the numbers in a log and bring this log with you to your doctors' appointments. (5) Lose Weight if your BMI is above 25. A healthy BMI is between 19-25. To calculate Your BMI, you may use a Standard BMI Calculator on the NIH BMI website: <www.nhlbi.nih.gov/guidelines/obesity/BMI/bmicalc.htm>. Weigh oneself daily. If you are overweight, set a goal to lose weight. A pound a week loss if needed is a good target. (6) Reduce Blood Sugar. Limit foods and liquids with "added sugars." (Added sugars include sucrose, fructose, glucose, maltose, dextrose, high fructose corn syrup, corn syrup, concentrated fruit juice and honey). (7) Stop Smoking. If you smoke, quitting smoking is one of the best things that you can do for your health. Smoking increases your risk of heart attack, stroke, and peripheral vascular disease, which is a build-up of plaque in your arteries. Please discard all the cigarettes and lighters in your house. Have a plan for what you will do when you have the urge to smoke. Direct and second- hand smoke shortens your life as well as the lives of your family, friends and others around you. For your health and the health of those around you, please consider quitting! Proper Bending Body Mechanics: Maintain a wide stance with one foot slightly in front of the other. Keep your back straight. Bend utilizing the strength in your hips and knees. Do not bend at the waist. Maintain the lifted object at your waist-level close to your body. Avoid lifting weight that causes immediately pain or pain anywhere in the body afterwards. Smoking/Nicotine If there was ever one thing that you could do to increase your overall health, decrease your risk of cardiovascular problems by about 39% the second you make the choice, it is to STOP SMOKING. Your body's most instant gratification is the second you stop smoking. We have all heard the studies, read the articles but it is true, smoking is extremely bad for your overall health, and moreover it is detrimental to your bone health. Nicotine, IN ANY FORM, kills bone cells, prevents your body from healing fractures, and significantly prolongs healing after surgery. In spine surgery specifically, it increases your risk of not healing your bones to create a fusion and increases your risk of having a revision surgery due to this up to 60%. I know it is hard. I know it feels impossible. But there are ways. Take control of your life. We are here to help you through it. And when you are ready, ask us and we can direct you to help if you desire. Use the START Plan to Quit Smoking (please visit the Helpguide.org website listed below for more information): S = Set a quit date. Choose a date within the next 2 weeks, so you have enough time to prepare without losing your motivation to quit. If you mainly smoke at work, quit on the weekend, so you have a few days to adjust to the change. T = Tell family, friends, and co-workers that you plan to quit. Let your friends and family in on your plan to quit smoking and tell them you need their support and encouragement to stop. Look for a quit bonnie who wants to stop smoking as well. You can help each other get through the rough times. A = Anticipate and plan for the challenges you'll face while quitting. Most people who begin smoking again do so within the first 3 months. You can help yourself make it through by preparing ahead for common challenges, such as nicotine withdrawal and cigarette cravings. R = Remove cigarettes and other tobacco products from your home, car, and work. Throw away all your cigarettes (no emergency pack!), lighters, ashtrays, and matches. Wash your clothes and freshen up anything that smells like smoke. Shampoo your car, clean your drapes and carpet, and steam your furniture. T = Talk to your doctor about getting help to quit. Your doctor can prescribe medication to help with withdrawal and suggest other alternatives. If you can't see a doctor, you can get many products over the counter at your local pharmacy or grocery store, including the nicotine patch, nicotine lozenges, and nicotine gum. Resources for Quitting Smoking: <https://www.[place].gov/documents/[facility]/Quit_Tobacco_Resources_for_patients_313 480_7.pdf> Supplementation: Take recommended dosages of Vitamin D and Calcium to help fortify your bones and help them to heal. See your health maintenance packet for dosages and recommended levels. DVT/VTE prophylaxis: You will be given compression stockings from the hospital. Wear these daily for the first two weeks after surgery. You may take them off at night. You may be prescribed a medication to help thin your blood. Take this as directed. If you are not prescribed this medication, early and frequent ambulation has been shown to be the best prophylaxis to deep vein thrombosis and sequelae related to this event. Discharge Disposition: TRANSFER TO SNF/ECF
[2022-03-27 10:09] LABS: African American GFR (CKD) 111.7 (60.0-200.0); Anion Gap 11.6 mmol/L (10.00-18.00); BUN/Creat Ratio 26.72 Ratio (12.00-20.00); Blood Urea Nitrogen 10.9 mg/dL (9.0-27.0); Calcium 8.7 mg/dL (8.7-10.3); Carbon Dioxide 26.3 mmol/L (20.0-27.5); Non-African American GFR(CKD) 96.4 (60.0-200.0); Potassium 3.8 mmol/L (3.5-5.5)
--- NOTE | 2022-03-27 12:29 | P.PN ---
Subjective Progress Note Date: 03/27/22 Principal diagnosis: 1. C4 AO Type B3 extension fracture, unstable, Neuro intact 2. Facial trauma, BHT 3. s/p ffs Patient seen at bedside this morning ditting up in chair eating breakfast. optifoam dressing present over posterior cervical spine. Patient does respond questions during encounter, however, patient appears somewhat groggy and fatigued. Patient says she does have some neck pain at this time. Patient has been getting up with PT daily. Patient denies chest pain, fever, shortness of breath, nausea, vomiting, change in vision. Patient denies any numbness/tingli ng in the bilateral upper and lower extremities. Patient denies any saddle anesthesia. Objective - Vital Signs Vital signs: Vital Signs Temp 98.2 F 03/27/22 05:00 Pulse 89 03/27/22 05:00 Resp 16 03/27/22 05:00 BP 161/83 03/27/22 05:00 Pulse Ox 97 03/27/22 05:00 FiO2 21 03/26/22 07:50 Intake & Output 03/26/22 03/27/22 03/27/22 18:59 06:59 18:59 Intake Total 580 590 Output Total 1 Balance 580 590 -1 Intake: Oral 580 590 Output: Urine 1 Other: Voiding Method Bedside Commode Bedpan # Voids 4 ABP, PAP, CO, CI - Last Documented Arterial Blood Pressure 09/14 - Exam soft cervical collar is present on patient. optifoam dressing present over incision. francia well aligned and intact. Incision appears to be healing well at this time. Patient does have some mild tenderness to palpation along incision on cervical spine. Patient is nontender to palpation throughout rest exam. Sensation is equal, symmetric, bilaterally intact throughout the upper and lower extremity. Patient does have full range of motion bilateral upper and lower extremities on exam. 4+/5 in all major motor groups in the bilateral upper and lower extremities on exam. Radial pulse intact, 2+ bilateral. Cap refill under 3 seconds in digits of upper extremities. Negative Homans bilaterally. Negative clonus bilaterally. - Labs CBC & Chem 7: 03/27/22 05:45 03/27/22 05:45 Assessment and Plan Assessment: 1. C4 AO Type B3 extension fracture, unstable, - post-op day #4 Status post open treatment C4 AO type BIII extension injury; posterior lateral attachment fusion C2-C1; bilateral laminectomy, foraminotomy C2-C7 Plan: 1. C4 AO Type B3 extension fracture, unstable, Neuro intact; Facial trauma, BHT - surgery performed 03/23/2022 - open treatment C4 AO type BIII extension injury; posterior lateral attachment fusion C2-C1; bilateral laminectomy, foraminotomy C2-C7 Patient stable at bedside this morning with soft cervical collar on. Optifoam dressing present on posterior cervical spine. Incision appears to be healing well at this time. Discharge to [facility] today. 2. appreciate medical management 3. Pain management - [place]; Flexeril; IV pain meds only as necessary 4. GI prophylaxis - Pepcid; Protonix; senna 5. DVT prophylaxis - mechanical 6. PT/OT - weightbearing as tolerated with walker and c-collar on at all times 7. Encourage incentive spirometer use 8. Discharge planning - discharge to [facility] today. Time with Patient: Less than 30
[2022-03-27] MEDS: LACTATED RINGERS 1,000 ML IV SCH (13:03)
--- NOTE | 2022-03-27 14:16 | P.PN ---
Subjective Progress Note Date: 03/27/22 (delayed charting seen at 0845) Patient is an 82-year-old lady with a past medical history of hypertension, dyslipidemia, and GERD who presented to the ER after a fall.She was found to have a C4 cervical fracture. Patient seen and examined at bedside. Reports slight increase in neck pain since switching from heart a soft collar. Denies any nausea, vomiting, lightheadedness. General: nontoxic, no distress, appears at stated age Derm: warm, dry Head: Soft cervical collar in place, bruising on her chin with laceration to bottom lip on the left- improving Eyes: EOMI, no lid lag, anicteric sclera Mouth: no lip lesion, mucus membranes dry Cardiovascular: S1S2 reg, no murmur, positive posterior tibial pulse bilateral, Lungs: Decreased bs bilateral, no rhonchi, no rales , no accessory muscle use Abdominal: soft, nontender to palpation, no guarding, no appreciable organomegaly Ext: no gross muscle atrophy, no edema, no contractures Neuro: CN II-XI grossly intact, no focal neuro deficits Psych: Alert, oriented, appropriate affect Assessment/plan: 82-year-old female status post fall with C4 fracture. Fracture management by orthopedic team. Hypertension - follow BP - norvasc Hyperlipidemia - statin - fenofibrate Leukocytosis -Likely reactive -Stable -Follow CBC GERD -PPI and H2 elliot Chronic anemia, improved -Stop IV fluids C4 cervical fracture -Management per orthopedic surgery team Tachycardia, resolved Medically optimized for discharge to residential. Discharge Med rec updated. DVT prophylaxis: per ortho Discussed with: patient, nursing Anticipated discharge: per ortho Anticipated discharge place: per ortho A total of 35 minutes was spent on the care of this complex patient more than 50% of the time was spent in counseling and care coordination. Active Medications Generic Name Dose Route Start Last Admin Trade Name Freq PRN Reason Stop Dose Admin Acetaminophen 650 mg 03/23/22 18:00 03/27/22 11:40 Acetaminophen Tab 325 Mg Tab PO 650 mg Q6HR ZORA Administration Hydrocodone Bitart/Acetaminophen 1 each 03/23/22 12:07 03/26/22 21:37 Hydrocodone/Apap 5-325mg 1 Each Tab PO 1 each Q6HR PRN Administration Pain Scale 4 - 6 Hydrocodone Bitart/Acetaminophen 1 each 03/23/22 12:07 03/27/22 08:29 Hydrocodone/Apap 10-325mg 1 Each Tab PO 1 each Q6H PRN Administration Pain Scale 7 - 10 Amlodipine Besylate 10 mg 03/22/22 14:15 03/27/22 08:29 Amlodipine 10 Mg Tab PO 10 mg DAILY ZORA Administration Cyclobenzaprine HCl 5 mg 03/23/22 12:07 03/27/22 11:41 Cyclobenzaprine 5 Mg Tab PO 5 mg TID PRN Administration Muscle Spasm Famotidine 40 mg 03/22/22 14:15 03/27/22 08:21 Famotidine 20 Mg Tab PO 40 mg DAILY ZORA Administration Fenofibrate 160 mg 03/23/22 09:00 03/27/22 08:21 Fenofibrate 160 Mg Tab PO 160 mg DAILY ZORA Administration Hydromorphone HCl 0.5 mg 03/23/22 12:07 03/23/22 20:56 Hydromorphone 0.5 Mg/0.5 Ml Syringe IVP 0.5 mg Q3HR PRN Administration Pain Scale 4 - 6 Hydromorphone HCl 1 mg 03/23/22 12:07 03/23/22 15:53 Hydromorphone 1 Mg/Ml 1 Ml Syringe IVP 1 mg Q3HR PRN Administration Pain Scale of 7 - 10 Lactated Ringer's 1,000 mls @ 20 mls/hr 03/23/22 12:29 03/27/22 13:03 Lactated Ringers IV Not Given .Q24H ZORA Lidocaine HCl 0.1 ml 03/23/22 12:29 Lidocaine 1% (10mg/Ml) For Iv Start INTRADERMA PER PROTOCOL PRN IV Start Morphine Sulfate 4 mg 03/22/22 12:03 03/23/22 06:29 Morphine Sulfate 4 Mg/Ml Syringe IV 4 mg Q4HR PRN Administration Severe Pain (Scale 7 to 10) Naloxone HCl 0.2 mg 03/22/22 11:42 Naloxone 0.4 Mg/Ml 1 Ml Vial IV Q2M PRN Opioid Reversal Pantoprazole Sodium 40 mg 03/24/22 09:00 03/27/22 08:21 Pantoprazole 40 Mg Tablet PO 40 mg [id number] ZORA Administration Pravastatin Sodium 80 mg 03/24/22 21:00 03/26/22 21:37 Pravastatin Sodium 80 Mg Tab PO 80 mg HS ZORA Administration Senna/Docusate Sodium 2 each 03/23/22 12:07 Sennosides-Docusate Sodium 1 Each Tab PO DAILY PRN Constipation Objective - Vital Signs Vital signs: Vital Signs Temp 98.2 F 03/27/22 05:00 Pulse 89 03/27/22 05:00 Resp 16 03/27/22 05:00 BP 161/83 03/27/22 05:00 Pulse Ox 97 03/27/22 05:00 FiO2 21 03/26/22 07:50 Intake & Output 03/26/22 03/27/22 03/27/22 18:59 06:59 18:59 Intake Total 580 590 Output Total 1 Balance 580 590 -1 Intake: Oral 580 590 Output: Urine 1 Other: Voiding Method Bedside Commode Toilet Bedpan # Voids 4 ABP, PAP, CO, CI - Last Documented Arterial Blood Pressure 09/14 - Labs CBC & Chem 7: 03/27/22 05:45 03/27/22 05:45 Labs: Abnormal Lab Results - Last 24 Hours (Table) 03/27/22 03/27/22 Range/Units 05:45 05:45 WBC 11.46 H (4.50-10.00) X 10*3/uL MPV 9.2 L (9.5-12.2) fL Creatinine 0.4 L (0.6-1.5) mg/dL BUN/Creatinine Ratio 26.72 H (12.00-20.00) Ratio Glucose 138 H (70-110) mg/dL
== END 2022-03-27 15:07 | DRG 455 ==
LOC: EC 09:06 → 5NMEDONC 12:25 → 2SICU 03-23 12:05 → 5NMEDONC 03-26 15:49
PROVIDERS: ADMIT Orthopaedic Surgery; ATTEND Orthopaedic Surgery
PROC: 0RG20AJ Fusion of 2 or more Cervical Vertebral Joints with Interbody Fusion Device, Posterior Approach, Anterior Column, Open Approach (ICD-10-PCS; 2022-03-23)
PROC: 0RG4071 Fusion of Cervicothoracic Vertebral Joint with Autologous Tissue Substitute, Posterior Approach, Posterior Column, Open Approach (ICD-10-PCS; 2022-03-23)
PROC: 0RG2071 Fusion of 2 or more Cervical Vertebral Joints with Autologous Tissue Substitute, Posterior Approach, Posterior Column, Open Approach (ICD-10-PCS; principal; 2022-03-23 08:00)
DX: S12.3 Fracture of fourth cervical vertebra (principal); I11.9 Hypertensive heart disease without heart failure; M45.2 Ankylosing spondylitis of cervical region; M45.4 Ankylosing spondylitis of thoracic region; S01.511A Laceration without foreign body of lip, initial encounter; D72.828 Other elevated white blood cell count; D64.89 Other specified anemias; E78.5 Hyperlipidemia, unspecified; M79.89 Other specified soft tissue disorders; S01.81XA Laceration without foreign body of other part of head, initial encounter; R29.6 Repeated falls; K21.9 Gastro-esophageal reflux disease without esophagitis; I44.4 Left anterior fascicular block; R32 Unspecified urinary incontinence; R26.81 Unsteadiness on feet; N32.81 Overactive bladder; S60.221A Contusion of right hand, initial encounter; M17.11 Unilateral primary osteoarthritis, right knee; W01.10XA Fall on same level from slipping, tripping and stumbling with subsequent striking against unspecified object, initial encounter; Z86.73 Personal history of transient ischemic attack (TIA), and cerebral infarction without residual deficits; Z91.048 Other nonmedicinal substance allergy status; Z88.8 Allergy status to other drugs, medicaments and biological substances; Y92.009 Unspecified place in unspecified non-institutional (private) residence as the place of occurrence of the external cause; Z91.81 History of falling; Z87.891 Personal history of nicotine dependence; Z79.899 Other long term (current) drug therapy; Z79.82 Long term (current) use of aspirin
CPT/HCPCS: 12011; 70450; 71045; 71260; 72040; 72125; 72141; 74177; 80048; 80053; 81001; 83735; 85025; 85027; 85610; 87635; 93306; 93880; 99285